=== PATIENT | male | born 1930 | race Caucasian/White ===

== ENCOUNTER 2018-02-05 03:59 | Inpatient (IN) | payer MEDICARE, OTHER ==
[~2018-02-05] VITALS: Ht 170.2 cm; Wt 96.6 kg
[~2018-02-05 03:59] MED LIST: ACET325T9 PO; ACET500T68 PO; ALLO100T PO; ALLO300T PO; AMLO5TAB4 PO; ASCO500T3 PO; Amoxicillin PO; Aspirin PO; CEPH-264 PO; CHOL200074 PO; CYAN10005 PO; DIPH25CA58 PO; ENOX40DI SQ; FAMO20TA5 PO; FERR325T14 PO; FOLI1TAB16 PO; FURO20TA3 PO; FURO40TA4 PO; GABA-586 PO; HALO5VIA2 IJ; HYDR-2758 PO; HYDR10SY16 PO; HYDR25TA9 PO; HYDR30CR6 RC; HYDR453.3 TP; IPRA3AMP NEB; LACT1CAP24 PO; LATA2.5D3 EACHEYE; LIDO5JEL8 TOP; LIDO700A4 TP; LISI-334 PO; LOPE1LIQ7 PO; LOPE2CAP3 PO; LORA0.5T PO; LORA10TA3 PO; MAG30ORA PO; MAGN2400 PO; MAGN400T3 PO; METH29OI TP; MULT1TAB52 PO; ONDA8TAB9 PO; PANT40TA3 PO; POTA10TA31 PO; POTA20TA12 PO; PRAV80TA2 PO; QUET25TA5 PO; RIVA20TA2 PO; SERT50TA8 PO; SIME80TA14 PO; SIMV20TA PO; SPIR25TA3 PO; TAMS0.4C2 PO; THIA100T4 PO; TIMO1DRO2 OU; TIMO5DRO5 EACHEYE; TRAZ50TA15 PO; TRIA15OI TP; WINE PO; [UNRECOGNIZED DRUG - OTHER] PO
[2018-02-05] MEDS ORDERED: LORazepam 2 MG/ML VIAL ONE (04:03)
[2018-02-05] MEDS: IV NORMAL SALINE 1,000ML 1,000 ML IV SCH ×2 (04:05→20:05)
[2018-02-05] MEDS ORDERED: LORazepam 2 MG/ML VIAL IV ONE ×2 (04:15→04:30)
--- NOTE | 2018-02-05 04:23 | EKG ---
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
[2018-02-05 04:24] LABS: BASO # 0.1 x10^3/uL (0.0-0.2); BASO % 1 % (0-3); EOS # 0.1 x10^3/uL (0.0-0.7); EOS % 1 % (0-3); HEMATOCRIT 29.8 % (39.0-53.0); HEMOGLOBIN 9.5 g/dL (13.0-17.5); LYMPH # 1.2 x10^3/uL (1.0-4.8); LYMPH % 8 % (24-48); MEAN CORPUSCULAR HEMOGLOBIN 30 pg (25-35); MEAN CORPUSCULAR HGB CONC 32 g/dL (31-37); MEAN CORPUSCULAR VOLUME 95 fL (79-100); MONO # 1.4 x10^3/uL (0.0-1.1); MONO % 10 % (0-9); NEUT # 11.5 x10^3uL (1.8-7.7); NEUT % 81 % (31-73); PLATELET COUNT 515 x10^3/uL (140-400); RED BLOOD COUNT 3.15 x10^6/uL (4.30-5.70); RED CELL DISTRIBUTION WIDTH 18.4 % (11.5-14.5); WHITE BLOOD COUNT 14.3 x10^3/uL (4.0-11.0)
[2018-02-05 04:36] LABS: ALBUMIN 3.4 g/dL (3.4-5.0); ALBUMIN/GLOBULIN RATIO 0.8 (1.0-1.7); CALCIUM 8.7 mg/dL (8.5-10.1); GFR 31.8; TOTAL BILIRUBIN 0.3 mg/dL (0.2-1.0); TOTAL PROTEIN 7.5 g/dL (6.4-8.2)
[2018-02-05 04:41] LABS: POTASSIUM 7.5 mmol/L (3.5-5.1)
[2018-02-05] MEDS ORDERED: IPRATRPIUM/ALBUTEROL 0.5/2.5MG 3 ML NEBU. NEB ONE (05:00)
[2018-02-05] MEDS ORDERED: BUMETANIDE 1 MG/4 ML VIAL. IVP ONE (05:00)
[2018-02-05] MEDS ORDERED: INSULIN REGULAR 100 UNIT/ML 10ML VIAL. IV ONE (05:00)
[2018-02-05] MEDS: CEFEPIME HCL 1 GM in IV NORMAL SALINE 50ML 50 ML IV SCH (05:00)
[2018-02-05] MEDS ORDERED: CALCIUM GLUCONATE 1,000 MG/10 ML VIAL IV ONE (05:00)
[2018-02-05] MEDS ORDERED: SODIUM BICARBONATE IVF 50 MEQ in IV DEXTROSE 5% 1,000 ML IV ONE (05:00)
[2018-02-05] MEDS ORDERED: DEXTROSE 50% 25 GM / 50ML DISP.SYRIN. IV ONE (05:00)
[2018-02-05] MEDS ORDERED: IV NORMAL SALINE 1,000ML 1,000 ML IV SCH (05:00)
[2018-02-05] MEDS ORDERED: VANCOMYCIN 2 GM in IV NORMAL SALINE 500ML 500 ML IV ONE ×2 (05:30→08:15)
[2018-02-05] MEDS ORDERED: SODIUM BICARB ADULT 8.4% 50 MEQ/50 ML DISP.SYRIN. ONE (05:40)
[2018-02-05 05:53] LABS: BILIRUBIN,URINE NEG (NEG); CLARITY,URINE CLEAR; COLOR,URINE STRAW; GLUCOSE,URINE NEG (NEG)
[2018-02-05 05:54] LABS: AMORPHOUS SEDIMENT,UR PRESENT /HPF; BACTERIA,URINE FEW /HPF (0-FEW); HYALINE CASTS, URINE OCC /HPF; NITRITE,URINE NEG (NEG); RBC,URINE OCC /HPF (0-2); SQUAMOUS EPITHELIAL CELL,UR OCC /LPF; UROBILINOGEN,URINE 0.2 mg/dL (0.2 mg/dL); WBC,URINE OCC /HPF (0-4)
[2018-02-05] MEDS ORDERED: ONDANSETRON PF 4 MG/2 ML VIAL. IV PRN (06:00)
--- NOTE | 2018-02-05 06:00 | PHYS DOC ---
Past History Past Medical History: A-Fib, Alcoholism, CHF, Dementia, Diverticulitis, High Cholesterol, Hypertension, Kidney Infection, UTI Past Surgical History: Pacemaker, Other Smoking: Non-smoker Alcohol Use: Heavy Drug Use: None Adult General Chief Complaint Chief Complaint: DYSPNEA/RESPIRATOY DISTRESS HPI HPI 87-year-old male senior care resident at an Alzheimer's memory care unit now sent for evaluation of shortness of breath for a week and patient has an extensive cardiac history including atrial fibrillation on eloquent is, congestive heart failure on Lasix, pacemaker in place, type 2 diabetes with insulin use, advanced dementia and a DNR status. Patient also take supplemental potassium 3 times a day. Apparently he is involved shortness of breath requiring supplemental oxygen for the last week. Per senior care staff it worsened tonight so they sent him for evaluation and treatment. Patient is at his baseline mental status per senior care staff via EMS. Review of Systems Review of Systems Review of systems per senior care staff via EMS Constitutional: Denies fever or chills [] Eyes: Denies change in visual acuity, redness, or eye pain [] HENT: Denies nasal congestion or sore throat [] Respiratory: Worsening shortness of breath over the last week as stated in the history of present illness Cardiovascular: No additional information not addressed in HPI [] GI: Denies abdominal pain, nausea, vomiting, bloody stools or diarrhea [] : Denies dysuria or hematuria [] Musculoskeletal: Denies back pain or joint pain [] Integument: Some skin bruising anterior abdomen Neurologic: Denies headache, focal weakness or sensory changes [] Endocrine: Denies polyuria or polydipsia [] All other systems were reviewed and found to be within normal limits, except as documented in this note. Current Medications Current Medications Current Medications Medications (Trade) Dose Ordered Sig/Michelle Start Time Stop Time Status Last Admin Dose Admin Albuterol/ Ipratropium (Duoneb) 3 ml 1X ONCE 02/05/18 05:00 02/05/18 05:01 DC Bumetanide (Bumex) 1 mg ONCE ONCE 02/05/18 05:00 02/05/18 05:01 DC Calcium Gluconate 1,000 mg 1X ONCE 02/05/18 05:00 02/05/18 05:01 DC Cefepime HCl 1 gm/ Sodium Chloride 50 ml @ 100 mls/hr Q24H 4/1/18 05:00 Dextrose 25 gm 1X ONCE 02/05/18 05:00 02/05/18 05:01 DC Insulin Human Regular (NovoLIN R) 10 unit 1X ONCE 02/05/18 05:00 02/05/18 05:01 DC Lorazepam (Ativan) 1 mg 1X ONCE 02/05/18 04:30 02/05/18 04:35 DC 02/05/18 04:30 1 MG Sodium Bicarbonate 50 meq/Dextrose 1,050 ml @ 125 mls/hr 1X ONCE 02/05/18 05:00 02/05/18 13:23 Sodium Chloride 1,000 ml @ 1,000 mls/hr Q1H 02/05/18 05:00 02/05/18 05:59 Vancomycin HCl (Vanco Per Pharmacy) 1 each PRN DAILY PRN 02/05/18 04:45 Vancomycin HCl 2 gm/Sodium Chloride 500 ml @ 250 mls/hr 1X ONCE 02/05/18 05:30 02/05/18 07:29 Allergies Allergies Allergies Coded Allergies Type Severity Reaction Last Updated Verified amoxicillin Allergy Intermediate 02/05/18 Yes aspirin Allergy Intermediate 02/05/18 Yes strawberry Allergy Intermediate 02/05/18 Yes Physical Exam Physical Exam Constitutional: Chronically weak appearing elderly male intermittently yelling which apparently is his mental status baseline per EMS, tachypnea initially in the 30s, hypoxia on room air in the 80s and 90s on supplemental oxygen, mild respiratory distress initially with mild increased work of breathing. Bilateral rails. 2+ pitting edema bilateral lower extremities. Benign abdomen and nonfocal neurologic exam with diffuse generalized weakness and chronic bedridden state HENT: Normocephalic, atraumatic, bilateral external ears normal, oropharynx moist, no oral exudates, nose normal. [] Eyes: PERRLA, EOMI, conjunctiva normal, no discharge. [] Neck: Normal range of motion, no tenderness, supple, no stridor. [] Cardiovascular: As above Lungs & Thorax: As above Abdomen: Bowel sounds normal, soft, no tenderness, no masses, no pulsatile masses. [] Skin: Warm, dry, no erythema, no rash. Several areas of ecchymosis anterior abdomen with subcutaneous induration consistent with Speck didn't subcutaneous injection history[] Back: No tenderness, no CVA tenderness. [] Extremities: No tenderness, no cyanosis, no clubbing, ROM intact, no edema. [] Neurologic: Alert baseline dementia patient is able to communicate and follow some commands, positive generalized weakness 4 minus out of 5 without asymmetry , normal sensory function, no focal deficits noted. [] Psychologic: Depressed mood and flat affect Current Patient Data Vital Signs Vital Signs Date Time Temp Pulse Resp B/P (MAP) Pulse Ox O2 Delivery O2 Flow Rate FiO2 02/05/18 04:40 98 BiPAP/CPAP 02/05/18 04:00 97.4 87 22 Lab Results Laboratory Tests Test 02/05/18 04:05 02/05/18 04:08 White Blood Count 14.3 x10^3/uL (4.0-11.0) H Red Blood Count 3.15 x10^6/uL (4.30-5.70) L Hemoglobin 9.5 g/dL (13.0-17.5) L Hematocrit 29.8 % (39.0-53.0) L Mean Corpuscular Volume 95 fL (79-100) Mean Corpuscular Hemoglobin 30 pg (25-35) Mean Corpuscular Hemoglobin Concent 32 g/dL (31-37) Red Cell Distribution Width 18.4 % (11.5-14.5) H Platelet Count 515 x10^3/uL (140-400) H Neutrophils (%) (Auto) 81 % (31-73) H Lymphocytes (%) (Auto) 8 % (24-48) L Monocytes (%) (Auto) 10 % (0-9) H Eosinophils (%) (Auto) 1 % (0-3) Basophils (%) (Auto) 1 % (0-3) Neutrophils # (Auto) 11.5 x10^3uL (1.8-7.7) H Lymphocytes # (Auto) 1.2 x10^3/uL (1.0-4.8) Monocytes # (Auto) 1.4 x10^3/uL (0.0-1.1) H Eosinophils # (Auto) 0.1 x10^3/uL (0.0-0.7) Basophils # (Auto) 0.1 x10^3/uL (0.0-0.2) Sodium Level 137 mmol/L (136-145) Potassium Level 7.5 mmol/L (3.5-5.1) *H Chloride Level 104 mmol/L (98-107) Carbon Dioxide Level 26 mmol/L (21-32) Anion Gap 7 (6-14) Blood Urea Nitrogen 44 mg/dL (8-26) H Creatinine 2.0 mg/dL (0.7-1.3) H Estimated GFR (Cockcroft-Gault) 31.8 BUN/Creatinine Ratio 22 (6-20) H Glucose Level 172 mg/dL (70-99) H Lactic Acid Level 2.0 mmol/L (0.4-2.0) Calcium Level 8.7 mg/dL (8.5-10.1) Total Bilirubin 0.3 mg/dL (0.2-1.0) Aspartate Amino Transferase (AST) 36 U/L (15-37) Alanine Aminotransferase (ALT) 47 U/L (16-63) Alkaline Phosphatase 112 U/L (46-116) Troponin I Quantitative 0.072 ng/mL (0-0.055) H UQ-Okt-D-Type Natriuretic Peptide 6566 pg/mL (0-449) H Total Protein 7.5 g/dL (6.4-8.2) Albumin 3.4 g/dL (3.4-5.0) Albumin/Globulin Ratio 0.8 (1.0-1.7) L Glucose (Fingerstick) 166 mg/dL (70-99) H EKG EKG EKG with atrial relation with ventricular rate of 74. Wide complex rhythm with left anterior hemiblock and right bundle branch block no STEMI. Nonspecific ST and T-wave findings interpreted by me[] Radiology/Procedures Radiology/Procedures Chest x-ray with severe cardiomegaly and congestive heart failure with pulmonary edema and radiographic inability to rule out infiltrate. Interpreted by me[] Impressions: Critical care 76 minutes Course & Med Decision Making Course & Med Decision Making Pertinent Labs and Imaging studies reviewed. (See chart for details) [] Dragon Disclaimer Dragon Disclaimer This electronic medical record was generated, in whole or in part, using a voice recognition dictation system. Departure Departure: Impression: Primary Impression: Acute on chronic diastolic congestive heart failure Additional Impressions: Hyperkalemia Hypoxia Tachypnea Leukocytosis Disposition: ADMITTED INPATIENT Admitting Physician: Malinda Estevez Condition: GUARDED Referrals: MALINDA ESTEVEZ MD (PCP) Problem Qualifiers ASHLIE GARY MD Feb 05, 2018 06:00
[2018-02-05] MEDS ORDERED: IV NORMAL SALINE 50ML 50 ML ONE (06:17)
[2018-02-05] MEDS ORDERED: CEFEPIME HCL 1 GM VIAL ONE (06:18)
[2018-02-05] MEDS ORDERED: SODIUM BICARB ADULT 8.4% 50 MEQ/50 ML DISP.SYRIN. IV ONE (06:30)
[2018-02-05] MEDS: VANCOMYCIN PER PHARMACY MC PRN (06:49)
--- NOTE | 2018-02-05 06:49 | NUR ---
Pharmacy Vancomycin Dosing Note S:Consulted to monitor and dose vancomycin started 02/05/18. O:JANICE DEMPSEY is a 87 year old M with Empiric . Height: 5 feet, 7 inches Weight: 93.567689 kg [place] Body Weight: 66.10 Adjusted Body Weight: 77.26 Dosing Weight: Actual Other Antibiotics: ZOSYN 4.5 GM Q8H LABS: Last BUN: 44 Last Creatinine: 2 Creatinine Clearance: 29 Last WBC: 14.3 Last Platelets: 515 Tmax (past 24 hours): Microbiology: I/O: Drug Levels: Last level: on at Last dose given at Vancomycin Dosing: Loading Dose: 2000 mg x1 Dosing Weight: Actual Target Trough: 10-20 A: Based on: WT AND CRCL P: 1. Begin Vancomycin 1500 mg IV q24h 2. Follow up Trough level on 02/07/18 at 0630 3. Pharmacy will continue to monitor, follow and adjust therapy as needed. ROB MONZON RPH, 02/05/18 0649 Signed: 02/05/18 at 0649 by ROB MONZON RPH PHA
--- NOTE | 2018-02-05 07:55 | NUR ---
Admit to room icu bed 4 via cart accompanied by staff and emt's. Drowsy but wakes with name briefly, vs stable on bipap , O2 sat 97-100%, no s/s of distress at this time. Saline lock to right ac patent. Oriented to room and explained all procedures, will need reinforcement.
[2018-02-05 07:56] VITALS: BP 150/81
--- NOTE | 2018-02-05 08:05 | RAD ---
AP portable chest radiograph 02/05/2018 Clinical History: Shortness of breath. Pacemaker. An AP portable erect digital radiograph of the chest was obtained. Comparison study is dated 10/08/2016. A left-sided pacemaker is unchanged position. The cardiac silhouette is mildly enlarged. Atherosclerotic calcification of the thoracic aorta is seen. The thoracic aorta is mildly tortuous. Prominence of the pulmonary vasculature and interstitial markings in both lungs is seen suggesting mild CHF. No area of consolidation is seen. No pneumothorax or pleural effusion is noted. Degenerative changes are seen involving the thoracic spine and both shoulders. Impression: Findings suggesting mild CHF.
[2018-02-05] MEDS: LACTOBACILLUS RHAMNOSUS GG 1 CAPSULE. PO SCH ×2 (08:58→20:49)
[2018-02-05 11:41] VITALS: BP 137/76
[2018-02-05 11:47] LABS: CREATININE 1.6 mg/dL (0.7-1.3); GFR 41.2
[2018-02-05 11:53] LABS: POTASSIUM 6.1 mmol/L (3.5-5.1)
[2018-02-05] MEDS ORDERED: IPRATRPIUM/ALBUTEROL 0.5/2.5MG 3 ML NEBU. NEB PRN (12:15)
[2018-02-05] MEDS ORDERED: LOPERAMIDE 2 MG CAPSULE PO PRN (12:15)
[2018-02-05] MEDS ORDERED: ACETAMINOPHEN 325 MG TABLET PO PRN (12:15)
[2018-02-05] MEDS ORDERED: MAGNESIUM HYDROXIDE 2,400 MG/30 ML ORAL.SUSP. PO PRN (12:30)
[2018-02-05] MEDS ORDERED: hydrOXYzine HCL 10 MG TABLET PO PRN (12:30)
[2018-02-05 12:38] LABS: BGAS PH 7.34 (7.35-7.46)
--- NOTE | 2018-02-05 12:42 | HP ---
ADMIT DATE: 02/05/2018 HISTORY OF PRESENT ILLNESS: The patient is an 87-year-old male patient, a resident at [facility], who apparently was brought to the Emergency Room with increasing shortness of breath. The patient was on Lasix, Zaroxolyn as well as potassium. He apparently was started requiring oxygen supplement and oxygen about a week ago; however, his shortness of breath has worsened and therefore he was transferred to Emergency Room at [facility] for further evaluation and treatment. He was extensively investigated and his chest x-ray showed that the cardiac silhouette is mildly enlarged. He has atherosclerotic calcification of the thoracic aorta is seen. The thoracic aorta is mildly tortuous. Prominence of the pulmonary vasculature and interstitial markings in both lungs were seen suggestive of mild congestive heart failure. There were no areas of consolidation seen. No pneumothorax or pleural effusions are noted. Degenerative changes are seen involving the thoracic spine and both shoulders. His white cell count was slightly elevated at 14,000 and his chemistry showed that he was hyperkalemic. His potassium was 7.5 mEq per liter. His BUN and creatinine slightly elevated from his baseline and his first set of troponin was slightly elevated also at 0.072. His beta natriuretic peptide was elevated also at 6566. The patient was admitted with an acute on chronic diastolic congestive heart failure, hyperkalemia, hypoxia and leukocytosis. PAST MEDICAL HISTORY: Significant for congestive heart failure due to left ventricular diastolic dysfunction, also hypertension, osteoarthritis, sciatica, chronic lower extremity edema, history of glaucoma, vitamin B12 deficiency and vitamin D deficiency. He has gouty arthritis, benign prostatic hypertrophy, sick sinus syndrome for which a permanent pacemaker. PAST SURGICAL HISTORY: Significant for permanent pacemaker placement. ALLERGIES: He has no known drug allergies. FAMILY HISTORY: Unremarkable. 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 He has a long history of alcoholism. He was admitted to double shots of [employer] a day, drinks heavier than that. He does not smoke and use recreational drugs. However, since he was admitted to [facility] he has not been drinking. REVIEW OF SYSTEMS: The patient is on BiPAP machine and I was unable to get any relevant information from him. MEDICATIONS: He is currently on following medications: He is on loratadine 10 mg once a day, ipratropium bromide albuterol sulfate 0.5-2.5 mg in 3 mL by nebulizer 4 times a day, tamsulosin 0.4 mg at bedtime, Tylenol 650 mg every 4 hours, sertraline 50 mg once a day, quetiapine fumarate 25 mg at bedtime. He is on quetiapine fumarate 12.5 mg every 4 hours as needed, hydroxyzine 20 mg every 8 hours as needed, timolol maleate 1 drop to both eyes with breakfast, magnesium oxide 400 mg twice a day, loperamide 2 mg every 4 hours as needed. He is on milk of magnesia 30 mL p.o. daily p.r.n. for constipation, famotidine 20 mg daily, cyanocobalamin for vitamin B12 1000 mcg p.o. daily and cholecalciferol 2000 international unit capsules 2000 units daily. PHYSICAL EXAMINATION: GENERAL: On arrival, the patient was extremely apparently was tachypneic, pale, but no jaundice, cyanosis or thyromegaly. No jugular venous distension. No limb edema. VITAL SIGNS: His heart rate was 87, his blood pressure was 130/67, temperature was 97.4, respiratory rate was 22 and oxygen saturation was 95% on BiPAP machine. HEAD, EYES, EARS, NOSE AND THROAT: Showed normocephalic, atraumatic. NECK: Supple. HEART: Showed normal first and second heart sounds. No gallop, rub or murmur. CHEST: Clear to auscultation. No crepitation or rhonchi. ABDOMEN: Distended, soft, nontender. No guarding or rigidity. No organomegaly. All hernial orifices intact. Bowel sounds normal. NEUROLOGIC: He is somewhat confused, but without any other lateralizing sign. All cranial nerves intact. EXTREMITIES: He moves extremities without difficulty. LABORATORY DATA: Showed a white cell count of 14,300, hemoglobin 9.5, hematocrit 29.8, MCV 95 and platelet count 515,000. His chemistry showed a serum sodium 137, potassium 7.5, chloride 104, bicarbonate 26, anion gap of 7, BUN 44, creatinine 0.2, estimated GFR was 32 mL per minute, his glucose 175, calcium was 8.7. Total bilirubin, AST, ALT, alkaline phosphatase were normal. His first troponin was 0.072 and beta natriuretic peptide was 6566. His total protein was 7.5, albumin was 3.4. TSH was slightly elevated at . IMPRESSION: In summary, this is an 87-year-old male patient, who was basically admitted with apfar-dn-fdblylt diastolic congestive heart failure. There also what seemed to be acute on chronic kidney injury. His creatinine about 2 years ago was only 1. He was also found to be hyperkalemic with serum potassium of 7.5, has mild leukocytosis and hypoxemia. His urinalysis was essentially unremarkable and was negative. ASSESSMENT AND PLAN: The patient was admitted and started on BiPAP, started on IV antibiotic for questionable pneumonia. We will monitor his lab work and his response to treatment and decide the further management accordingly. NEAL ESTEVEZ MD DR: ALFREDO/alejo JOB#: [id number] / [id number]
[2018-02-05] MEDS ORDERED: SODIUM POLYSTYRENE SULFONATE 15 GM/60 ML ORAL.SUSP. PO ONE (13:45)
[2018-02-05] MEDS ORDERED: LACTULOSE 20 GM/30 ML SOLUTION. PO ONE (13:45)
[2018-02-05] MEDS ORDERED: FURO40TA4 PO (13:46)
[2018-02-05] MEDS ORDERED: FINA5TAB4 PO (13:46)
[2018-02-05] MEDS ORDERED: MENT222L TP (13:48)
[2018-02-05] MEDS ORDERED: ATOR10TA PO (13:49)
[2018-02-05] MEDS ORDERED: BUSP10TA PO (13:52)
[2018-02-05] MEDS ORDERED: ALLO300T PO (13:53)
[2018-02-05] MEDS ORDERED: TRAM50TA PO (13:54)
[2018-02-05] MEDS ORDERED: INSU100I27 SQ (13:56)
[2018-02-05] MEDS ORDERED: INSU100C4 SQ (13:57)
[2018-02-05] MEDS ORDERED: SPIR25TA3 PO (13:58)
[2018-02-05] MEDS ORDERED: APIX5TAB3 PO (13:59)
[2018-02-05] MEDS ORDERED: DIPH25CA58 PO (14:00)
[2018-02-05] MEDS ORDERED: PRED-220 PO (14:00)
[2018-02-05] MEDS ORDERED: POTA20TA84 PO (14:02)
[2018-02-05] MEDS ORDERED: NITROGLYCERIN SUBLINGUAL 0.4 MG BOTTLE OF 25. SL ONE (14:13)
[2018-02-05] MEDS ORDERED: NITROGLYCERIN SUBLINGUAL 0.4 MG BOTTLE OF 25. SL PRN (14:15)
[2018-02-05] MEDS ORDERED: traMADol 50 MG TABLET PO PRN (14:30)
[2018-02-05] MEDS ORDERED: FLUV100T2 PO (14:34)
[2018-02-05] MEDS ORDERED: NIFE60TA PO (14:34)
[2018-02-05 15:09] VITALS: BP 136/81
[2018-02-05] MEDS: FUROSEMIDE 40 MG TABLET PO SCH (18:41)
[2018-02-05] MEDS: diphenhydrAMINE HCL 25 MG CAPSULE PO PRN (18:41)
[2018-02-05 19:17] VITALS: BP 123/61
[2018-02-05] MEDS: TAMSULOSIN 0.4 MG CAP.ER.24H. PO SCH (20:48)
[2018-02-05] MEDS: MENTHOL/CAMPHOR 0.5%/0.5% LOTION 222ML BOTTLE. TP SCH (20:48)
[2018-02-05] MEDS: APIXABAN 5 MG TABLET. PO SCH (20:48)
[2018-02-05] MEDS: LATANOPROST 0.005% OPHTH SOLUTION 2.5ML BOTTLE. OU SCH (20:48)
[2018-02-05] MEDS: busPIRone 10 MG TABLET. PO SCH (20:49)
[2018-02-05] MEDS: LORazepam 2 MG/ML VIAL IV PRN (20:49)
[2018-02-05] MEDS: ATORVASTATIN CALCIUM 10 MG TABLET. PO SCH (20:49)
[2018-02-05] MEDS: MAGNESIUM OXIDE 400 MG TABLET PO SCH (20:49)
[2018-02-05] MEDS: QUEtiapine 25 MG TABLET. PO SCH (20:49)
[2018-02-05] MEDS: INSULIN DETEMIR 300 UNITS/3 ML INSULN.PEN. SQ SCH (20:51)
[2018-02-05 22:18] VITALS: BP 125/54
[2018-02-06] VITALS (7 sets, daily range): BP systolic 110–153; BP diastolic 51–81
[2018-02-06] MEDS: IV NORMAL SALINE 1,000ML 1,000 ML IV SCH (04:05)
[2018-02-06] MEDS: CEFEPIME HCL 1 GM in IV NORMAL SALINE 50ML 50 ML IV SCH (04:53)
[2018-02-06 06:31] LABS: HEMATOCRIT 28.9 % (39.0-53.0); HEMOGLOBIN 9.4 g/dL (13.0-17.5); RED BLOOD COUNT 3.06 x10^6/uL (4.30-5.70); RED CELL DISTRIBUTION WIDTH 18.5 % (11.5-14.5); WHITE BLOOD COUNT 9.5 x10^3/uL (4.0-11.0)
[2018-02-06 06:45] LABS: ALBUMIN/GLOBULIN RATIO 0.7 (1.0-1.7); CALCIUM 8.7 mg/dL (8.5-10.1); CREATININE 1.4 mg/dL (0.7-1.3); GFR 48.1; TOTAL BILIRUBIN 0.4 mg/dL (0.2-1.0); TOTAL PROTEIN 7.3 g/dL (6.4-8.2)
[2018-02-06 06:48] LABS: POTASSIUM 2.8 mmol/L (3.5-5.1)
[2018-02-06] MEDS ORDERED: POTASSIUM CHLORIDE 20 MEQ TABLET.ER. PO ONE ×2 (07:15→14:00)
[2018-02-06] MEDS: POTASSIUM CHLORIDE 20 MEQ TABLET.ER. PO SCH ×2 (07:45→11:40)
[2018-02-06] MEDS: TIMOLOL 0.5% OPHTH SOLUTION 5ML BOTTLE. OU SCH (07:46)
[2018-02-06] MEDS: VANCOMYCIN 1.5 GM in IV NORMAL SALINE 500ML 500 ML IV SCH (07:46)
[2018-02-06] MEDS: LACTOBACILLUS RHAMNOSUS GG 1 CAPSULE. PO SCH ×2 (08:01→21:35)
[2018-02-06] MEDS: MAGNESIUM OXIDE 400 MG TABLET PO SCH ×2 (08:01→21:35)
[2018-02-06] MEDS: busPIRone 10 MG TABLET. PO SCH ×2 (08:02→21:35)
[2018-02-06] MEDS: SERTRALINE 50 MG TABLET. PO SCH (08:05)
[2018-02-06] MEDS: CYANOCOBALAMIN (VITAMIN B-12) 1,000 MCG TABLET. PO SCH (08:05)
[2018-02-06] MEDS: CHOLECALCIFEROL (VITAMIN D3) 1,000 UNIT TABLET PO SCH (08:05)
[2018-02-06] MEDS: FINASTERIDE 5 MG TABLET PO SCH (08:05)
[2018-02-06] MEDS: ALLOPURINOL 300 MG TABLET. PO SCH (08:05)
[2018-02-06] MEDS: predniSONE 10 MG TABLET PO SCH (08:05)
[2018-02-06] MEDS: APIXABAN 5 MG TABLET. PO SCH ×2 (08:06→21:35)
[2018-02-06] MEDS: FUROSEMIDE 40 MG TABLET PO SCH (08:06)
[2018-02-06] MEDS: MENTHOL/CAMPHOR 0.5%/0.5% LOTION 222ML BOTTLE. TP SCH ×2 (08:27→21:00)
--- NOTE | 2018-02-06 08:45 | NUR ---
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
[2018-02-06] MEDS ORDERED: CETIRIZINE HCL 10 MG TABLET PO SCH (09:00)
[2018-02-06] MEDS ORDERED: FAMOTIDINE 20 MG TABLET PO SCH (09:00)
--- NOTE | 2018-02-06 09:44 | PDOC2 ---
CARDIAC CONSULT DATE OF CONSULT Date Of Consult DATE: 02/06/18 TIME: 09:34 REASON FOR CONSULT Reason for Consult CHF HPI History of Present Illness This is an 87-year-old male, resident at [place] who was transported via EMS for shortness of breath. He has apparently been experiencing new shortness of breath requiring oxygen for the last week but worsened so was sent to the ED,. He has advanced dementia and is unable to give history so this is obtained from the chart. He was found to be in congestive heart failure, ARF and had a significantly elevated potassium. He is currently sitting up in bed and resting quietly but when wakened he complains of not being able to breath. 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, resident at [place], non smoker, no illicit drugs CURRENT MEDICATIONS Current Medications Current Medications Lorazepam (Ativan) 2 mg STK-MED ONCE .ROUTE ; Start 02/05/18 at 04:03; Stop at 04:04; Status DC Lorazepam (Ativan) 1 mg 1X ONCE IV Last administered on 02/05/18at 04:12; Start 02/05/18 at 04:15; Stop 02/05/18 at 04:24; Status DC Sodium Chloride 1,000 ml @ 125 mls/hr Q8H IV ; Start 02/05/18 at 04:05 Bumetanide (Bumex) 1 mg ONCE ONCE IVP Last administered on 02/05/18at 05:45; Start 02/05/18 at 05:00; Stop 02/05/18 at 05:01; Status DC Lorazepam (Ativan) 1 mg 1X ONCE IV Last administered on 02/05/18at 04:30; Start 02/05/18 at 04:30; Stop 02/05/18 at 04:35; Status DC Sodium Chloride 1,000 ml @ 1,000 mls/hr Q1H IV ; Start 02/05/18 at 05:00; Stop 02/05/18 at 05:59; Status DC Cefepime HCl 1 gm/ Sodium Chloride 50 ml @ 100 mls/hr Q24H IV Last administered on 02/06/18at 04:53; Start 02/05/18 at 05:00 Vancomycin HCl (Vanco Per Pharmacy) 1 each PRN DAILY PRN MC SEE COMMENTS Last administered on 02/05/18at 06:49; Start 02/05/18 at 04:45 Calcium Gluconate 1,000 mg 1X ONCE IV Last administered on 02/05/18at 05:48; Start 02/05/18 at 05:00; Stop 02/05/18 at 05:01; Status DC Albuterol/ Ipratropium (Duoneb) 3 ml 1X ONCE NEB Last administered on at 05:57; Start 02/05/18 at 05:00; Stop 02/05/18 at 05:01; Status DC Sodium Bicarbonate 50 meq/Dextrose 1,050 ml @ 125 mls/hr 1X ONCE IV ; Start at 05:00; Stop 02/05/18 at 13:23; Status DC Insulin Human Regular (NovoLIN R) 10 unit 1X ONCE IV Last administered on at 05:54; Start 02/05/18 at 05:00; Stop 02/05/18 at 05:01; Status DC Dextrose 25 gm 1X ONCE IV Last administered on 02/05/18at 05:50; Start 02/05/18 at 05:00; Stop 02/05/18 at 05:01; Status DC Vancomycin HCl 2 gm/Sodium Chloride 500 ml @ 250 mls/hr 1X ONCE IV ; Start 02/05/18 at 05:30; Stop 02/05/18 at 07:29; Status DC Sodium Bicarbonate (Sodium Bicarb Adult 8.4% Syr) 50 meq STK-MED ONCE .ROUTE ; Start 02/05/18 at 05:40; Stop 02/05/18 at 05:41; Status DC Ondansetron HCl (Zofran) 4 mg PRN Q4HRS PRN IV NAUSEA/VOMITING; Start 02/05/18 at 06:00; Stop 02/06/18 at 06:00; Status DC Lorazepam (Ativan) 1 mg PRN Q2HR PRN IV ANXIETY Last administered on 02/05/18at 20:49; Start 02/05/18 at 06:00 Sodium Bicarbonate (Sodium Bicarb Adult 8.4% Syr) 50 meq 1X ONCE IV Last administered on 02/05/18at 06:12; Start 02/05/18 at 06:30; Stop 02/05/18 at 06:31; Status DC Sodium Chloride 50 ml @ As Directed STK-MED ONCE .ROUTE ; Start 02/05/18 at 06:17 ; Stop 02/05/18 at 06:18; Status DC Cefepime HCl (Maxipime) 1 gm STK-MED ONCE .ROUTE ; Start 02/05/18 at 06:18; Stop 02/05/18 at 06:19; Status DC Vancomycin HCl 1.5 gm/Sodium Chloride 500 ml @ 250 mls/hr Q24H IV Last administered on 02/06/18at 07:46; Start 02/06/18 at 08:00 Vancomycin HCl (Vancomycin Trough Level) 1 each 1X ONCE MC ; Start 02/07/18 at 07:30; Stop 02/07/18 at 07:31 Lactobacillus Rhamnosus (Culturelle) 1 cap BID PO Last administered on at 08:01; Start 02/05/18 at 09:00 Vancomycin HCl 2 gm/Sodium Chloride 500 ml @ 250 mls/hr 1X ONCE IV Last administered on 02/05/18at 08:23; Start 02/05/18 at 08:15; Stop 02/05/18 at 10:14; Status DC Acetaminophen (Tylenol) 650 mg PRN Q6HRS PRN PO PAIN; Start 02/05/18 at 12:15 Cyanocobalamin (Vitamin B-12) 1,000 mcg DAILY PO Last administered on 02/06/18at 08:05; Start 02/06/18 at 09:00 Famotidine (Pepcid) 20 mg DAILY PO ; Start 02/06/18 at 09:00; Stop 02/06/18 at 09: 00; Status DC Hydroxyzine HCl (Atarax) 20 mg PRN Q8HRS PRN PO ITCHING; Start 02/05/18 at 12:30 ; Stop 02/05/18 at 16:34; Status DC Albuterol/ Ipratropium (Duoneb) 3 ml PRN Q4HRS PRN NEB SHORTNESS OF BREATH; Start 02/05/18 at 12:15 Latanoprost (Xalatan) 1 drop QHS OU Last administered on 02/05/18at 20:48; Start 02/05/18 at 21:00 Loperamide HCl (Imodium) 2 mg PRN Q4HRS PRN PO DIARRHEA; Start 02/05/18 at 12:15 ; Stop 02/05/18 at 16:34; Status DC Magnesium Oxide (Magnesium Oxide) 400 mg BID PO Last administered on 02/06/18at 08:01; Start 02/05/18 at 21:00 Quetiapine Fumarate (SEROquel) 25 mg HS PO Last administered on 02/05/18at 20:49 ; Start 02/05/18 at 21:00 Sertraline HCl (Zoloft) 50 mg DAILY PO Last administered on 02/06/18at 08:05; Start 02/06/18 at 09:00 Tamsulosin HCl (Flomax) 0.4 mg HS PO Last administered on 02/05/18at 20:48; Start 02/05/18 at 21:00 Vitamin D (Vitamin D3) 2,000 unit DAILY PO Last administered on 02/06/18at 08:05 ; Start 02/06/18 at 09:00 Hydrocortisone (Proctosol-Hc) 1 genaro PRN BID PRN RC INFLAMMATION; Start 02/05/18 at 12:30 Cetirizine HCl (ZyrTEC) 10 mg DAILY PO ; Start 02/06/18 at 09:00; Stop 02/06/18 at 09:00; Status DC Magnesium Hydroxide (Milk Of Magnesia) 2,400 mg PRN QHS PRN PO CONSTIPATION; Start 02/05/18 at 12:30 Timolol Maleate (Timoptic 0.5% Oph) 1 drop DAILYWBKFT OU Last administered on 02/06/18at 07:46; Start 02/06/18 at 08:00 Sodium Polystyrene Sulfonate (Kayexalate) 30 gm 1X ONCE PO Last administered on 02/05/18at 14:29; Start 02/05/18 at 13:45; Stop 02/05/18 at 13:46; Status DC Lactulose (Lactulose) 20 gm 1X ONCE PO Last administered on 02/05/18at 14:28; Start 02/05/18 at 13:45; Stop 02/05/18 at 13:46; Status DC Nitroglycerin (Nitrostat) 0.4 mg STK-MED ONCE SL ; Start 02/05/18 at 14:13; Stop 02/05/18 at 14:14; Status DC Nitroglycerin (Nitrostat) 0.4 mg PRN Q5MIN PRN SL CHEST PAIN Last administered on 02/05/18at 14:27; Start 02/05/18 at 14:15 Allopurinol (Zyloprim) 300 mg DAILY PO Last administered on 02/06/18 08:05; Start 02/06/18 at 09:00 Apixaban (Eliquis) 5 mg BID PO Last administered on 02/06/18 08:06; Start at 21:00 Atorvastatin Calcium (Lipitor) 10 mg QHS PO Last administered on 02/05/18at 20:49 ; Start 02/05/18 at 21:00 Buspirone HCl (Buspar) 10 mg BID PO Last administered on 02/06/18at 08:02; Start 02/05/18 at 21:00 Diphenhydramine HCl (Benadryl) 25 mg PRN Q4HRS PRN PO ITCHING Last administered on 02/05/18at 18:41; Start 02/05/18 at 14:30 Finasteride (Proscar) 5 mg DAILY PO Last administered on 02/06/18 08:05; Start 02/06/18 at 09:00 Furosemide (Lasix) 40 mg BID94 PO Last administered on 02/06/18at 08:06; Start at 16:00 Insulin Detemir (Levemir) 6 units HS SQ Last administered on 02/05/18at 20:51; Start 02/05/18 at 21:00 Camphor/Menthol/ Phenol (Sarna) 1 genaro BID TP Last administered on 02/05/18 20: 48; Start 02/05/18 at 21:00 Prednisone (Prednisone) 10 mg DAILY PO Last administered on 02/06/18 08:05; Start 02/06/18 at 09:00 Tramadol HCl (Ultram) 50 mg PRN Q4HRS PRN PO PAIN Last administered on at 18:41; Start 02/05/18 at 14:30 Fluvoxamine Maleate (Luvox) 100 mg QHS PO Last administered on 4/1/18at 21:42; Start 02/05/18 at 21:00 Nifedipine (Procardia Xl) 60 mg DAILY PO Last administered on 02/06/18at 08:02; Start 02/06/18 at 09:00 Potassium Chloride (Klor-Con) 40 meq 1X ONCE PO ; Start 02/06/18 at 07:15; Stop 02/06/18 at 07:21; Status DC Potassium Chloride (Klor-Con) 40 meq Q2H PO Last administered on 02/06/18at 07:45 ; Start 02/06/18 at 07:15; Stop 02/06/18 at 09:16; Status DC Active Scripts Active Reported Fluvoxamine Maleate 100 Mg Tablet 1 Tab PO QHS Procardia Xl (Nifedipine) 60 Mg Tab.er.24 1 Tab PO DAILY K-Tab ER (Potassium Chloride) 20 Meq Tablet.er 40 Meq PO DAILY Prednisone 10 Mg Tablet 10 Mg PO DAILY Benadryl (Diphenhydramine Hcl) 25 Mg Capsule 1 Cap PO PRN Q4HRS PRN Eliquis (Apixaban) 5 Mg Tablet 5 Mg PO BID Spironolactone 25 Mg Tablet 1 Tab PO DAILY Novolog (Insulin Aspart) 100 Unit/1 Ml Cartridge 6 Unit SQ TIDAC Levemir Flextouch (Insulin Detemir) 100 Unit/1 Ml Insuln.pen 6 Unit SQ HS Tramadol Hcl (Tramadol HCl) 50 Mg Tablet 50 Mg PO Q4HRS PRN Allopurinol 300 Mg Tablet 1 Tab PO DAILY Buspirone Hcl 10 Mg Tablet 1 Tab PO BID Lipitor (Atorvastatin Calcium) 10 Mg Tablet 1 Tab PO QHS Alcides Anti-Itch Lotion (Menthol/Camphor) 222 Ml Lotion 222 Ml TP BID Furosemide 40 Mg Tablet 40 Mg PO BID Finasteride 5 Mg Tablet 1 Tab PO DAILY Duoneb 0.5-3(2.5) Mg/3 Ml (Albuterol/Ipratropium) 3 Ml Ampul.neb 3 Ml NEB Q4HRS PRN Analpram Hc 2.5% Cream (Hydrocortisone/Pramoxine) 30 Gm Cream.appl 1 Genaro RC BID PRN Milk Of Magnesia (Magnesium Hydroxide) 2,400 Mg/10 Ml Oral.susp 2,400 Mg PO PRN QHS PRN Timoptic 0.5% Ocudose Drop (Timolol Maleate/Pf) 1 Each Droperette 1 Drop OU DAILYWBKFT Seroquel (Quetiapine Fumarate) 25 Mg Tablet 25 Mg PO HS Tylenol (Acetaminophen) 325 Mg Tablet 650 Mg PO Q6HRS PRN Magnesium Oxide 400 Mg Tablet 400 Mg PO BID Latanoprost 2.5 Ml Drops 1 Drop EACHEYE QHS Vitamin B-12 (Cyanocobalamin (Vitamin B-12)) 1,000 Mcg Tablet 1,000 Mcg PO DAILY Vitamin D-3 (Cholecalciferol (Vitamin D3)) 2,000 Unit Capsule 2,000 Unit PO DAILY Tamsulosin Hcl 0.4 Mg Cap.er.24h 0.4 Mg PO HS ALLERGIES Allergies: Coded Allergies: amoxicillin (Verified Allergy, Intermediate, 02/05/18) aspirin (Verified Allergy, Intermediate, 02/05/18) strawberry (Verified Allergy, Intermediate, 02/05/18) I S O L A T I O N *CONTACT* (Verified Allergy, Unknown, 02/06/18) +MRSA 10/08/2016 ROS Review of Systems unobtainable PHYSICAL EXAM HEENT: Atraumatic Lungs: Other (basilar crackles) Heart: Other (irregular rate and rhythm, no gallops, clicks or rubs) Abdomen: Normal bowel sounds, Soft Extremities: Other (+ bilateral edema) Psych/Mental Status: Other (confused) VITALS Vital Signs Vital Signs Date Time Temp Pulse Resp B/P (MAP) Pulse Ox O2 Delivery O2 Flow Rate FiO2 02/06/18 08:38 Nasal Cannula 3.0 02/06/18 08:02 76 153/70 02/06/18 06:34 21 92 02/06/18 02:57 98.9 LABS LABS Laboratory Tests Test 02/05/18 04:05 02/05/18 04:08 02/05/18 05:15 02/05/18 08:18 White Blood Count 14.3 x10^3/uL (4.0-11.0) Red Blood Count 3.15 x10^6/uL (4.30-5.70) Hemoglobin 9.5 g/dL (13.0-17.5) Hematocrit 29.8 % (39.0-53.0) Mean Corpuscular Volume 95 fL (79-100) Mean Corpuscular Hemoglobin 30 pg (25-35) Mean Corpuscular Hemoglobin Concent 32 g/dL (31-37) Red Cell Distribution Width 18.4 % (11.5-14.5) Platelet Count 515 x10^3/uL (140-400) Neutrophils (%) (Auto) 81 % (31-73) Lymphocytes (%) (Auto) 8 % (24-48) Monocytes (%) (Auto) 10 % (0-9) Eosinophils (%) (Auto) 1 % (0-3) Basophils (%) (Auto) 1 % (0-3) Neutrophils # (Auto) 11.5 x10^3uL (1.8-7.7) Lymphocytes # (Auto) 1.2 x10^3/uL (1.0-4.8) Monocytes # (Auto) 1.4 x10^3/uL (0.0-1.1) Eosinophils # (Auto) 0.1 x10^3/uL (0.0-0.7) Basophils # (Auto) 0.1 x10^3/uL (0.0-0.2) Sodium Level 137 mmol/L (136-145) Potassium Level 7.5 mmol/L (3.5-5.1) Chloride Level 104 mmol/L (98-107) Carbon Dioxide Level 26 mmol/L (21-32) Anion Gap 7 (6-14) Blood Urea Nitrogen 44 mg/dL (8-26) Creatinine 2.0 mg/dL (0.7-1.3) Estimated GFR (Cockcroft-Gault) 31.8 BUN/Creatinine Ratio 22 (6-20) Glucose Level 172 mg/dL (70-99) Lactic Acid Level 2.0 mmol/L (0.4-2.0) 1.0 mmol/L (0.4-2.0) Calcium Level 8.7 mg/dL (8.5-10.1) Total Bilirubin 0.3 mg/dL (0.2-1.0) Aspartate Amino Transf (AST/SGOT) 36 U/L (15-37) Alanine Aminotransferase (ALT/SGPT) 47 U/L (16-63) Alkaline Phosphatase 112 U/L (46-116) Troponin I Quantitative 0.072 ng/mL (0-0.055) 0.070 ng/mL (0-0.055) ZA-Yhz-M-Type Natriuretic Peptide 6566 pg/mL (0-449) Total Protein 7.5 g/dL (6.4-8.2) Albumin 3.4 g/dL (3.4-5.0) Albumin/Globulin Ratio 0.8 (1.0-1.7) Thyroid Stimulating Hormone (TSH) 6.579 uIU/mL (0.358-3.740) Glucose (Fingerstick) 166 mg/dL (70-99) Urine Collection Type U cath Urine Color Straw Urine Clarity Clear Urine pH 5.0 Urine Specific [place] 1.010 Urine Protein Neg (NEG-TRACE) Urine Glucose (UA) Neg mg/dL (NEG) Urine Ketones (Stick) Neg mg/dL (NEG) Urine Blood Neg (NEG) Urine Nitrite Neg (NEG) Urine Bilirubin Neg (NEG) Urine Urobilinogen Dipstick 0.2 mg/dL (0.2 mg/dL) Urine Leukocyte Esterase Neg (NEG) Urine RBC Occ /HPF (0-2) Urine WBC Occ /HPF (0-4) Urine Squamous Epithelial Cells Occ /LPF Urine Amorphous Sediment Present /HPF Urine Bacteria Few /HPF (0-FEW) Urine Hyaline Casts Occ /HPF Urine Mucus Slight /LPF Test 02/05/18 11:25 02/05/18 12:10 02/05/18 20:26 02/06/18 05:49 Sodium Level 139 mmol/L (136-145) 146 mmol/L (136-145) Potassium Level 6.1 mmol/L (3.5-5.1) 2.8 mmol/L (3.5-5.1) Chloride Level 106 mmol/L (98-107) 106 mmol/L (98-107) Carbon Dioxide Level 25 mmol/L (21-32) 32 mmol/L (21-32) Anion Gap 8 (6-14) 8 (6-14) Blood Urea Nitrogen 43 mg/dL (8-26) 31 mg/dL (8-26) Creatinine 1.6 mg/dL (0.7-1.3) 1.4 mg/dL (0.7-1.3) Estimated GFR (Cockcroft-Gault) 41.2 48.1 Glucose Level 65 mg/dL (70-99) 66 mg/dL (70-99) Calcium Level 9.0 mg/dL (8.5-10.1) 8.7 mg/dL (8.5-10.1) Troponin I Quantitative 0.066 ng/mL (0-0.055) Blood Gas pH 7.34 (7.35-7.46) Blood Gas PCO2 51 mmHg (35-46) Blood Gas PO2 96 mmHg (71-100) Blood Gas HCO3 28 mmol/L (21-28) Arterial Bld O2 Saturation (Calc) 97 % (92-99) FiO2 45 % Glucose (Fingerstick) 70 mg/dL (70-99) White Blood Count 9.5 x10^3/uL (4.0-11.0) Red Blood Count 3.06 x10^6/uL (4.30-5.70) Hemoglobin 9.4 g/dL (13.0-17.5) Hematocrit 28.9 % (39.0-53.0) Mean Corpuscular Volume 95 fL (79-100) Mean Corpuscular Hemoglobin 31 pg (25-35) Mean Corpuscular Hemoglobin Concent 33 g/dL (31-37) Red Cell Distribution Width 18.5 % (11.5-14.5) Platelet Count 430 x10^3/uL (140-400) Prothrombin Time 12.4 SEC (9.4-11.4) Prothromb Time International Ratio 1.2 (0.9-1.1) BUN/Creatinine Ratio 22 (6-20) Total Bilirubin 0.4 mg/dL (0.2-1.0) Aspartate Amino Transf (AST/SGOT) 32 U/L (15-37) Alanine Aminotransferase (ALT/SGPT) 43 U/L (16-63) Alkaline Phosphatase 89 U/L (46-116) Total Protein 7.3 g/dL (6.4-8.2) Albumin 3.0 g/dL (3.4-5.0) Albumin/Globulin Ratio 0.7 (1.0-1.7) Test 02/06/18 06:03 02/06/18 06:45 Glucose (Fingerstick) 54 mg/dL (70-99) 90 mg/dL (70-99) IMAGES IMAGES CXR - Impression: Findings suggesting mild CHF. EKG EKG atrial fibrillation, IWMI age undetermined, RBBB, no acute st/t changes ASSESSMENT/PLAN Assessment/Plan 1. acute on chronic probable diastolic heart failure - Continue diuresis, check echo for LV function. 2. mild troponin elevation - likely demand related. In light of patient mental status and functionality, suggest conservative mgmt. No asa due to allergy. 3. atrial fibrillation, perm - on Eliquis 4. PPM - st Tung - check device 5. hyperkalemia/hypokalemia - Aldactone and potassium replacement on arrival discontinued. Kayexalate and now low K+. Replace per PCP 6. hypertension - fair control on resumed home medications 7. hyperlipidemia - check lipids, statin DIMITRY KHANNA [employer] DISMANT[employer]ER Feb 06, 2018 09:44
--- NOTE | 2018-02-06 11:08 | RAD ---
CHEST AP ONLY History: CHF, COUGH. Comparison: February 05, 2018 image available but no report Findings: Cardiomediastinal silhouette is enlarged. There is ill-definition and prominence of central vascularity compatible with congestion. This is similar to the previous study. Mild hazy density over both lungs without dense lobar consolidation. No evidence of pneumothorax. Pacemaker is redemonstrated. Degenerative changes of both shoulders, with evidence of right rotator cuff tear IMPRESSION: Findings suggest congestive failure or fluid overload with pulmonary edema. No new lobar consolidation. Electronically signed by: Huber Carrera MD (02/06/2018 11:05 AM) [id number]
--- NOTE | 2018-02-06 12:00 | NUR ---
Dr. Douglas here today, plan is to repeat chest xray and change PO lasix to IVP. Redraw labs to make sure potassium is within normal limits and dose per protocol. Pt continues to have difficulty breathing upon exertion, wheezing noted. Remains on 3-4L NC with sats at 96%, will try to titrate. Pt is restless throughout day but easily redirectable.
[2018-02-06 12:55] LABS: CALCIUM 8.5 mg/dL (8.5-10.1); CREATININE 1.4 mg/dL (0.7-1.3); GFR 48.1
[2018-02-06 12:58] LABS: POTASSIUM 4.2 mmol/L (3.5-5.1)
[2018-02-06] MEDS: FUROSEMIDE 40 MG/4 ML VIAL IVP SCH (13:15)
[2018-02-06] MEDS: LATANOPROST 0.005% OPHTH SOLUTION 2.5ML BOTTLE. OU SCH (21:00)
[2018-02-06] MEDS: INSULIN DETEMIR 300 UNITS/3 ML INSULN.PEN. SQ SCH (21:00)
[2018-02-06] MEDS: TAMSULOSIN 0.4 MG CAP.ER.24H. PO SCH (21:35)
[2018-02-06] MEDS: ATORVASTATIN CALCIUM 10 MG TABLET. PO SCH (21:35)
[2018-02-06] MEDS: QUEtiapine 25 MG TABLET. PO SCH (21:36)
[2018-02-07] MEDS: LORazepam 2 MG/ML VIAL IV PRN ×2 (01:57→04:17)
[2018-02-07] MEDS: diphenhydrAMINE HCL 25 MG CAPSULE PO PRN (01:57)
[2018-02-07 04:00] VITALS: BP 119/54
[2018-02-07] MEDS: CEFEPIME HCL 1 GM in IV NORMAL SALINE 50ML 50 ML IV SCH (04:57)
[2018-02-07 07:58] VITALS: BP 154/67
[2018-02-07 08:15] LABS: BASO # 0.1 x10^3/uL (0.0-0.2); BASO % 1 % (0-3); EOS # 0.4 x10^3/uL (0.0-0.7); EOS % 4 % (0-3); HEMATOCRIT 27.1 % (39.0-53.0); HEMOGLOBIN 8.6 g/dL (13.0-17.5); LYMPH # 0.9 x10^3/uL (1.0-4.8); LYMPH % 9 % (24-48); MEAN CORPUSCULAR HEMOGLOBIN 30 pg (25-35); MEAN CORPUSCULAR HGB CONC 32 g/dL (31-37); MEAN CORPUSCULAR VOLUME 95 fL (79-100); MONO # 1.2 x10^3/uL (0.0-1.1); MONO % 12 % (0-9); NEUT # 7.3 x10^3uL (1.8-7.7); NEUT % 74 % (31-73); PLATELET COUNT 424 x10^3/uL (140-400); RED BLOOD COUNT 2.87 x10^6/uL (4.30-5.70); RED CELL DISTRIBUTION WIDTH 18.4 % (11.5-14.5); WHITE BLOOD COUNT 9.8 x10^3/uL (4.0-11.0)
[2018-02-07] MEDS ORDERED: LORazepam 2 MG/ML VIAL IV PRN (08:15)
[2018-02-07 08:16] LABS: ALBUMIN 2.8 g/dL (3.4-5.0); ALBUMIN/GLOBULIN RATIO 0.7 (1.0-1.7); CALCIUM 8.9 mg/dL (8.5-10.1); CREATININE 1.3 mg/dL (0.7-1.3); GFR 52.3; TOTAL BILIRUBIN 0.4 mg/dL (0.2-1.0); TOTAL PROTEIN 7.1 g/dL (6.4-8.2)
[2018-02-07 08:18] LABS: VANC TR 18.8 mcg/mL (10.0-20.0)
[2018-02-07] MEDS: FUROSEMIDE 40 MG/4 ML VIAL IVP SCH (08:31)
[2018-02-07] MEDS: TIMOLOL 0.5% OPHTH SOLUTION 5ML BOTTLE. OU SCH (08:32)
[2018-02-07] MEDS: VANCOMYCIN 1.5 GM in IV NORMAL SALINE 500ML 500 ML IV SCH (08:32)
[2018-02-07] MEDS: CHOLECALCIFEROL (VITAMIN D3) 1,000 UNIT TABLET PO SCH (09:00)
[2018-02-07] MEDS: MENTHOL/CAMPHOR 0.5%/0.5% LOTION 222ML BOTTLE. TP SCH ×2 (09:00→20:29)
[2018-02-07] MEDS: ALLOPURINOL 300 MG TABLET. PO SCH (09:00)
[2018-02-07] MEDS: SERTRALINE 50 MG TABLET. PO SCH (09:00)
[2018-02-07] MEDS: predniSONE 10 MG TABLET PO SCH (09:00)
[2018-02-07] MEDS: busPIRone 10 MG TABLET. PO SCH ×2 (09:00→20:22)
[2018-02-07] MEDS: CYANOCOBALAMIN (VITAMIN B-12) 1,000 MCG TABLET. PO SCH (09:00)
[2018-02-07] MEDS: APIXABAN 5 MG TABLET. PO SCH ×2 (09:00→20:22)
[2018-02-07] MEDS: MAGNESIUM OXIDE 400 MG TABLET PO SCH ×2 (09:00→20:23)
[2018-02-07] MEDS: LACTOBACILLUS RHAMNOSUS GG 1 CAPSULE. PO SCH ×2 (09:00→20:22)
[2018-02-07] MEDS: FINASTERIDE 5 MG TABLET PO SCH (09:00)
[2018-02-07] MEDS: VANCOMYCIN PER PHARMACY MC PRN (09:06)
--- NOTE | 2018-02-07 09:06 | NUR ---
Pharmacy Vancomycin Dosing Note S:Consulted to monitor and dose vancomycin started 02/05/18. O:JANICE DEMPSEY is a 87 year old M with Questionable pneumonia Empir[facility] . Height: 5 feet, 7 inches Weight: 97.248496 kg [place] Body Weight: 66.10 Adjusted Body Weight: 77.26 Dosing Weight: Actual Other Antibiotics: ZOSYN LABS: Last BUN: 25 Last Creatinine: 1.3 Creatinine Clearance: 37.2 Last WBC: 9.8 Last Platelets: 424 Drug Levels: Last Trough level: 18.8 on 02/07/18 at 0630 Vancomycin Dosing: Loading Dose: 2000 mg x1 Dosing Weight: Actual Target Trough: 15-20 A: Based on the trough, continue current dosing. P: 1. Continue Vancomycin 1500 mg IV q24h 2. Follow up Trough level on 02/10/18 at 0630 3. Pharmacy will continue to monitor, follow and adjust therapy as needed. ROMERO MARTELL [facility] 02/07/18 [id number]
--- NOTE | 2018-02-07 09:15 | NUR ---
Pt very sleepy this morning, resting with eyes closed but able to arouse and ask for water. Pt max assist and continue to reposition patient to prevent breakdown. Pt Lung sounds diminished, continues on 3L NC with sats at 94%. Pt denies pain or discomfort so far this shift. Will continue to monitor patient throughout shift.
--- NOTE | 2018-02-07 09:34 | CARD ---
MR#: [id number] Date of Study: 02/06/2018 Ordering Physician: DIMITRY KHANNA, Referring Physician: NEAL ESTEVEZ Tech: LEDY Ochoa APPROVED REPORT EXAM: Two-dimensional and M-mode echocardiogram with Doppler and color Doppler. Other Information Quality : AverageHR: 75bpm Technically limited study due to body habitus. INDICATION Congestive Heart Failure 2D DIMENSIONS RVDd4.1 (2.9-3.5cm)Left Atrium(2D)4.4 (1.6-4.0cm) IVSd1.6 (0.7-1.1cm)Aortic Root(2D)2.8 (2.0-3.7cm) LVDd4.7 (3.9-5.9cm)LVOT Diameter2.2 (1.8-2.4cm) PWd1.4 (0.7-1.1cm)LVDs2.7 (2.5-4.0cm) FS (%) 42.2 %SV76.5 ml LVEF(%)73.2 (>50%) Aortic Valve AoV Peak Tristan.404.1cm/sAoV EOW773.3cm AO Peak GR.65.3mmHgLVOT Peak Tristan.71.3cm/s LVOT VTI 15.86cmAO Mean GR.39mmHg ANABELL (VMAX)0.91it7WWC (VTI)0.44cm2 Mitral Valve MV E Fgtlneml170.6cm/sMV DECEL [id number] MV A Hquadjzn65.3cm/sE/A Ratio3.3 Pulmonary Valve PV Peak Ubdidoqx099.1cm/sPV Peak Grad.8mmHg Tricuspid Valve TR P. Frqpaojm810fr/sRAP [id number] TR Peak Gr.01siVhAUIU58whEx LEFT VENTRICLE The left ventricle is normal size. There is mild to moderate concentric left ventricular hypertrophy. The left ventricular systolic function is normal. The ejection fraction is estimated at 60-65%. Ther e is normal LV segmental wall motion. Transmitral Doppler flow pattern is Grade IV-fixed restrictive diastolic dysfunction. RIGHT VENTRICLE The right ventricle is normal size. The right ventricle is mildly to moderately hypertrophied. The ri ght ventricular systolic function is normal. There is a pacemaker lead in the right ventricle. ATRIA The left atrium is mildly dilated. A pacemaker is seen in the right atrium consistent with history. T he interatrial septum is intact with no evidence for an atrial septal defect or patent foramen ovale as noted on 2-D or Doppler imaging. AORTIC VALVE The aortic valve is severely calcified. Doppler and Color Flow revealed no significant aortic regurgi tation. There is moderate to severe valvular aortic stenosis. There is no aortic valvular vegetation. MITRAL VALVE The mitral valve is calcified but opens well. There is no evidence of mitral valve prolapse. There is no mitral valve stenosis. Doppler and Color Flow revealed no mitral valve regurgitation noted. TRICUSPID VALVE The tricuspid valve leaflets are thickened or calcified, but open well. Doppler and Color Flow reveal ed moderate tricuspid regurgitation. There is moderate-severe pulmonary hypertension. The PA pressure was estimated at 72 mmHg. There is no tricuspid valve prolapse or vegetation. There is no tricuspid valve stenosis. PULMONIC VALVE The pulmonic valve is not well visualized. Doppler and Color Flow revealed mild pulmonic valvular reg urgitation. There is no pulmonic valvular stenosis. GREAT VESSELS The aortic root is normal size. The aortic root displays moderate sclerocalcific changes of the aorti c annulus.root. The IVC is dilated. The IVC collapses <50% with inspiration. PERICARDIAL EFFUSION There is no pleural effusion. There is no evidence of significant pericardial effusion. Critical Notification Critical Value: No <Conclusion> The left ventricular systolic function is normal. The ejection fraction is estimated at 60-65%. There is normal LV segmental wall motion. A pacemaker is seen in the right atrium consistent with history. There is moderate to severe valvular aortic stenosis with mean gradient 39 mm Hg.. Doppler and Color Flow revealed moderate tricuspid regurgitation. There is moderate-severe pulmonary hypertension. The PA pressure was estimated at 72 mmHg. There is no evidence of significant pericardial effusion. Signed by : Arcenio Edmond, Electronically Approved : 02/07/2018 09:34:03
--- NOTE | 2018-02-07 09:42 | PN ---
DATE: 02/06/2018 SUBJECTIVE: The patient is resting, slightly propped up in bed, in no apparent distress. He continued to have recurrent bouts of cough with thick sputum. He is now on 4 liters of oxygen, maintaining adequate saturation was 92%. PHYSICAL EXAMINATION: GENERAL: When I examined him, he was somewhat pale, but no jaundice, cyanosis, or thyromegaly. No jugular venous distension. No lower limb edema. VITAL SIGNS: His heart rate was 76, blood pressure 153/70, temperature was 98.9, respiratory rate was 21 and oxygen saturation was 92% on 3 liters oxygen by nasal cannula. HEAD, EYES, EARS, NOSE AND THROAT: Shows normocephalic, atraumatic. NECK: Supple. HEART: Showed normal first and second heart sounds with no gallop, rub or murmur. CHEST: Clear to auscultation. No crepitation or rhonchi. ABDOMEN: Distended, soft, nontender. No guarding or rigidity. No organomegaly. Hernial orifice intact. Bowel sounds normal. NEUROLOGIC: He was awake, alert, although continued to be somewhat agitated and restless. All his cranial nerves are intact. He moves extremities without difficulty, although he is mostly bedbound, chair bound. LABORATORY DATA: His intake over the last 24 hours was 820, output was 2700. His lab work as of this morning showed a white cell count is down to 9500, hemoglobin 9.4, hematocrit 28.9, MCV 95 and platelet count of 450,000. His chemistry showed that his serum sodium is 146, potassium 2.8, chloride 106, bicarbonate 32, anion gap of 8, BUN 31, creatinine 1.4, estimated GFR was 48 mL per minute. His glucose was 66, calcium was 8.7. Total bilirubin, AST, ALT, alkaline phosphatase were normal. Total protein 7.3, albumin was 3. So far, his blood cultures showed no growth after one day. ASSESSMENT AND PLAN: 1. Acute on chronic diastolic congestive heart failure. 2. Acute on chronic kidney injury, marked hyperkalemia, serum potassium of 7.5. 3. Acute hypoxic hypercapnic respiratory failure. 4. Other medical problems include hypertension, atrial fibrillation, benign prostatic hypertrophy, sick sinus syndrome, status post permanent pacemaker. The plan is to continue with diuresing him, await the result of an echocardiogram to evaluate left ventricular systolic function. 5. Atrial fibrillation, rate controlled, on Eliquis. 6. Hyperkalemia. His potassium and Aldactone was discontinued. We treated him with Kayexalate and his potassium now is low, so we are replenishing his potassium. 7. Hypertension, well controlled. 8. Hyperlipidemia, on atorvastatin. 9. He has also benign prostatic hypertrophy for which he is on finasteride and Flomax. 10. The patient is also known to have gout for which he is on allopurinol. 11. The patient also has severe skin rash for which he has been on prolonged steroid courses and he is now Cushingoid and he continues to be on prednisone 10 mg once a day. 12. We will continue also on IV antibiotic in the form of vancomycin and cefepime as he has leukocytosis and questionable healthcare-associated pneumonia. NEAL ESTEVEZ MD DR: ALFREDO/alejo JOB#: [id number] / [id number]
--- NOTE | 2018-02-07 10:36 | PDOC ---
PROGRESS NOTES Diagnosis Problem Problems Medical Problems: (1) Acute on chronic diastolic congestive heart failure Status: Acute (2) CHF (congestive heart failure) Status: Acute (3) Hyperkalemia Status: Acute (4) Hypoxia Status: Acute (5) Leukocytosis Status: Acute (6) Tachypnea Status: Acute Assessment Problems Medical Problems: (1) Acute on chronic diastolic congestive heart failure Status: Acute (2) CHF (congestive heart failure) Status: Acute (3) Hyperkalemia Status: Acute (4) Hypoxia Status: Acute (5) Leukocytosis Status: Acute (6) Tachypnea Status: Acute 1. acute on chronic diastolic heart failure - continue diuresis. 2. mild troponin elevation - likely demand related due to uncontrolled HTN and aortic stenosis. In light of patient mental status and functionality, suggest continue conservative mgmt. No asa due to allergy. 3. atrial fibrillation, perm - on Eliquis 4. PPM - st Tung - check device normal without HVRs. 5. PHTN 6. mod 7. Hypertension - consider addition of ACEI with close watch on K+ 8. hyperkalemia on aldactone /hypokalemia after kayexalate - now normalized. 9. hyperlipidemia - statin 10. sleep apnea - wittnessed. OP sleep study Problems: Subjective sleeping after sedatives last pm Objective Oxygen 2 liters NC maintaining SaO2. Vital Signs Date Time Temp Pulse Resp B/P (MAP) Pulse Ox O2 Delivery O2 Flow Rate FiO2 02/07/18 08:30 Nasal Cannula 3.0 02/07/18 07:58 68 22 154/67 (96) 94 02/07/18 04:00 97.8 Intake and Output 02/07/18 07:00 Intake Total 820 ml Output Total 2100 ml Balance -1280 ml Intake Oral 270 ml IV Total 550 ml Output Urine Total 2100 ml Abdomen: Normal bowel sounds, Soft Heart: Other (irregular rhythm, no gallops) Extremities: Other (edema improved) General: No acute distress, Other (sleeping after sedatives last pm) HEENT: Atraumatic Lungs: Other (clear anteriorly) Review of Relevant I have reviewed the following items rob (where applicable) has been applied. Labs Laboratory Tests Test 02/05/18 11:25 02/05/18 12:10 02/05/18 18:00 02/05/18 20:26 Sodium Level 139 mmol/L (136-145) Potassium Level 6.1 mmol/L (3.5-5.1) Chloride Level 106 mmol/L (98-107) Carbon Dioxide Level 25 mmol/L (21-32) Anion Gap 8 (6-14) Blood Urea Nitrogen 43 mg/dL (8-26) Creatinine 1.6 mg/dL (0.7-1.3) Estimated GFR (Cockcroft-Gault) 41.2 Glucose Level 65 mg/dL (70-99) Calcium Level 9.0 mg/dL (8.5-10.1) Troponin I Quantitative 0.066 ng/mL (0-0.055) Blood Gas pH 7.34 (7.35-7.46) Blood Gas PCO2 51 mmHg (35-46) Blood Gas PO2 96 mmHg (71-100) Blood Gas HCO3 28 mmol/L (21-28) Arterial Bld O2 Saturation (Calc) 97 % (92-99) FiO2 45 % Nasal Screen MRSA (PCR) Positive (Negative) Glucose (Fingerstick) 70 mg/dL (70-99) Test 02/06/18 05:49 02/06/18 06:03 02/06/18 06:45 02/06/18 11:19 White Blood Count 9.5 x10^3/uL (4.0-11.0) Red Blood Count 3.06 x10^6/uL (4.30-5.70) Hemoglobin 9.4 g/dL (13.0-17.5) Hematocrit 28.9 % (39.0-53.0) Mean Corpuscular Volume 95 fL (79-100) Mean Corpuscular Hemoglobin 31 pg (25-35) Mean Corpuscular Hemoglobin Concent 33 g/dL (31-37) Red Cell Distribution Width 18.5 % (11.5-14.5) Platelet Count 430 x10^3/uL (140-400) Prothrombin Time 12.4 SEC (9.4-11.4) Prothromb Time International Ratio 1.2 (0.9-1.1) Sodium Level 146 mmol/L (136-145) Potassium Level 2.8 mmol/L (3.5-5.1) Chloride Level 106 mmol/L (98-107) Carbon Dioxide Level 32 mmol/L (21-32) Anion Gap 8 (6-14) Blood Urea Nitrogen 31 mg/dL (8-26) Creatinine 1.4 mg/dL (0.7-1.3) Estimated GFR (Cockcroft-Gault) 48.1 BUN/Creatinine Ratio 22 (6-20) Glucose Level 66 mg/dL (70-99) Calcium Level 8.7 mg/dL (8.5-10.1) Total Bilirubin 0.4 mg/dL (0.2-1.0) Aspartate Amino Transf (AST/SGOT) 32 U/L (15-37) Alanine Aminotransferase (ALT/SGPT) 43 U/L (16-63) Alkaline Phosphatase 89 U/L (46-116) Total Protein 7.3 g/dL (6.4-8.2) Albumin 3.0 g/dL (3.4-5.0) Albumin/Globulin Ratio 0.7 (1.0-1.7) Glucose (Fingerstick) 54 mg/dL (70-99) 90 mg/dL (70-99) 173 mg/dL (70-99) Test 02/06/18 12:30 02/06/18 17:10 02/06/18 20:14 02/07/18 07:49 Sodium Level 144 mmol/L (136-145) 147 mmol/L (136-145) Potassium Level 4.2 mmol/L (3.5-5.1) 4.0 mmol/L (3.5-5.1) Chloride Level 107 mmol/L (98-107) 107 mmol/L (98-107) Carbon Dioxide Level 32 mmol/L (21-32) 34 mmol/L (21-32) Anion Gap 5 (6-14) 6 (6-14) Blood Urea Nitrogen 30 mg/dL (8-26) 25 mg/dL (8-26) Creatinine 1.4 mg/dL (0.7-1.3) 1.3 mg/dL (0.7-1.3) Estimated GFR (Cockcroft-Gault) 48.1 52.3 Glucose Level 217 mg/dL (70-99) 148 mg/dL (70-99) Calcium Level 8.5 mg/dL (8.5-10.1) 8.9 mg/dL (8.5-10.1) Glucose (Fingerstick) 155 mg/dL (70-99) 182 mg/dL (70-99) White Blood Count 9.8 x10^3/uL (4.0-11.0) Red Blood Count 2.87 x10^6/uL (4.30-5.70) Hemoglobin 8.6 g/dL (13.0-17.5) Hematocrit 27.1 % (39.0-53.0) Mean Corpuscular Volume 95 fL (79-100) Mean Corpuscular Hemoglobin 30 pg (25-35) Mean Corpuscular Hemoglobin Concent 32 g/dL (31-37) Red Cell Distribution Width 18.4 % (11.5-14.5) Platelet Count 424 x10^3/uL (140-400) Neutrophils (%) (Auto) 74 % (31-73) Lymphocytes (%) (Auto) 9 % (24-48) Monocytes (%) (Auto) 12 % (0-9) Eosinophils (%) (Auto) 4 % (0-3) Basophils (%) (Auto) 1 % (0-3) Neutrophils # (Auto) 7.3 x10^3uL (1.8-7.7) Lymphocytes # (Auto) 0.9 x10^3/uL (1.0-4.8) Monocytes # (Auto) 1.2 x10^3/uL (0.0-1.1) Eosinophils # (Auto) 0.4 x10^3/uL (0.0-0.7) Basophils # (Auto) 0.1 x10^3/uL (0.0-0.2) BUN/Creatinine Ratio 19 (6-20) Total Bilirubin 0.4 mg/dL (0.2-1.0) Aspartate Amino Transf (AST/SGOT) 23 U/L (15-37) Alanine Aminotransferase (ALT/SGPT) 35 U/L (16-63) Alkaline Phosphatase 80 U/L (46-116) Total Protein 7.1 g/dL (6.4-8.2) Albumin 2.8 g/dL (3.4-5.0) Albumin/Globulin Ratio 0.7 (1.0-1.7) Vancomycin Level Trough 18.8 mcg/mL (10.0-20.0) Vancomycin Last Dose Date 02/06/2018 Vancomycin Last Dose Time 0800 Microbiology 02/05/18 Blood Culture - Preliminary, Resulted NO GROWTH AFTER 2 DAYS Medications Current Medications Lorazepam (Ativan) 2 mg STK-MED ONCE .ROUTE ; Start 02/05/18 at 04:03; Stop at 04:04; Status DC Lorazepam (Ativan) 1 mg 1X ONCE IV Last administered on 02/05/18at 04:12; Start 02/05/18 at 04:15; Stop 02/05/18 at 04:24; Status DC Sodium Chloride 1,000 ml @ 125 mls/hr Q8H IV ; Start 02/05/18 at 04:05; Stop 02/06/18 at 10:39; Status DC Bumetanide (Bumex) 1 mg ONCE ONCE IVP Last administered on 02/05/18at 05:45; Start 02/05/18 at 05:00; Stop 02/05/18 at 05:01; Status DC Lorazepam (Ativan) 1 mg 1X ONCE IV Last administered on 02/05/18at 04:30; Start 02/05/18 at 04:30; Stop 02/05/18 at 04:35; Status DC Sodium Chloride 1,000 ml @ 1,000 mls/hr Q1H IV ; Start 02/05/18 at 05:00; Stop 02/05/18 at 05:59; Status DC Cefepime HCl 1 gm/ Sodium Chloride 50 ml @ 100 mls/hr Q24H IV Last administered on 02/07/18at 04:57; Start 02/05/18 at 05:00 Vancomycin HCl (Vanco Per Pharmacy) 1 each PRN DAILY PRN MC SEE COMMENTS Last administered on 02/07/18at 09:06; Start 02/05/18 at 04:45 Calcium Gluconate 1,000 mg 1X ONCE IV Last administered on 02/05/18at 05:48; Start 02/05/18 at 05:00; Stop 02/05/18 at 05:01; Status DC Albuterol/ Ipratropium (Duoneb) 3 ml 1X ONCE NEB Last administered on at 05:57; Start 02/05/18 at 05:00; Stop 02/05/18 at 05:01; Status DC Sodium Bicarbonate 50 meq/Dextrose 1,050 ml @ 125 mls/hr 1X ONCE IV ; Start at 05:00; Stop 02/05/18 at 13:23; Status DC Insulin Human Regular (NovoLIN R) 10 unit 1X ONCE IV Last administered on at 05:54; Start 02/05/18 at 05:00; Stop 02/05/18 at 05:01; Status DC Dextrose 25 gm 1X ONCE IV Last administered on 02/05/18at 05:50; Start 02/05/18 at 05:00; Stop 02/05/18 at 05:01; Status DC Vancomycin HCl 2 gm/Sodium Chloride 500 ml @ 250 mls/hr 1X ONCE IV ; Start 02/05/18 at 05:30; Stop 02/05/18 at 07:29; Status DC Sodium Bicarbonate (Sodium Bicarb Adult 8.4% Syr) 50 meq STK-MED ONCE .ROUTE ; Start 02/05/18 at 05:40; Stop 02/05/18 at 05:41; Status DC Ondansetron HCl (Zofran) 4 mg PRN Q4HRS PRN IV NAUSEA/VOMITING; Start 02/05/18 at 06:00; Stop 02/06/18 at 06:00; Status DC Lorazepam (Ativan) 1 mg PRN Q2HR PRN IV ANXIETY Last administered on 02/07/18at 04:17; Start 02/05/18 at 06:00; Stop 02/07/18 at 08:06; Status DC Sodium Bicarbonate (Sodium Bicarb Adult 8.4% Syr) 50 meq 1X ONCE IV Last administered on 02/05/18at 06:12; Start 02/05/18 at 06:30; Stop 02/05/18 at 06:31; Status DC Sodium Chloride 50 ml @ As Directed STK-MED ONCE .ROUTE ; Start 02/05/18 at 06:17 ; Stop 02/05/18 at 06:18; Status DC Cefepime HCl (Maxipime) 1 gm STK-MED ONCE .ROUTE ; Start 02/05/18 at 06:18; Stop 02/05/18 at 06:19; Status DC Vancomycin HCl 1.5 gm/Sodium Chloride 500 ml @ 250 mls/hr Q24H IV Last administered on 02/07/18at 08:32; Start 02/06/18 at 08:00 Vancomycin HCl (Vancomycin Trough Level) 1 each 1X ONCE MC Last administered on 02/07/18at 07:30; Start 02/07/18 at 07:30; Stop 02/07/18 at 07:32; Status DC Lactobacillus Rhamnosus (Culturelle) 1 cap BID PO Last administered on at 21:35; Start 02/05/18 at 09:00 Vancomycin HCl 2 gm/Sodium Chloride 500 ml @ 250 mls/hr 1X ONCE IV Last administered on 02/05/18at 08:23; Start 02/05/18 at 08:15; Stop 02/05/18 at 10:14; Status DC Acetaminophen (Tylenol) 650 mg PRN Q6HRS PRN PO PAIN; Start 02/05/18 at 12:15 Cyanocobalamin (Vitamin B-12) 1,000 mcg DAILY PO Last administered on 02/06/18at 08:05; Start 02/06/18 at 09:00 Famotidine (Pepcid) 20 mg DAILY PO ; Start 02/06/18 at 09:00; Stop 02/06/18 at 09: 00; Status DC Hydroxyzine HCl (Atarax) 20 mg PRN Q8HRS PRN PO ITCHING; Start 02/05/18 at 12:30 ; Stop 02/05/18 at 16:34; Status DC Albuterol/ Ipratropium (Duoneb) 3 ml PRN Q4HRS PRN NEB SHORTNESS OF BREATH; Start 02/05/18 at 12:15 Latanoprost (Xalatan) 1 drop QHS OU Last administered on 02/05/18at 20:48; Start 02/05/18 at 21:00 Loperamide HCl (Imodium) 2 mg PRN Q4HRS PRN PO DIARRHEA; Start 02/05/18 at 12:15 ; Stop 02/05/18 at 16:34; Status DC Magnesium Oxide (Magnesium Oxide) 400 mg BID PO Last administered on 02/06/18at 21:35; Start 02/05/18 at 21:00 Quetiapine Fumarate (SEROquel) 25 mg HS PO Last administered on 02/06/18at 21:36 ; Start 02/05/18 at 21:00 Sertraline HCl (Zoloft) 50 mg DAILY PO Last administered on 02/06/18at 08:05; Start 02/06/18 at 09:00 Tamsulosin HCl (Flomax) 0.4 mg HS PO Last administered on 02/06/18at 21:35; Start 02/05/18 at 21:00 Vitamin D (Vitamin D3) 2,000 unit DAILY PO Last administered on 02/06/18at 08:05 ; Start 02/06/18 at 09:00 Hydrocortisone (Proctosol-Hc) 1 genaro PRN BID PRN RC INFLAMMATION; Start 02/05/18 at 12:30 Cetirizine HCl (ZyrTEC) 10 mg DAILY PO ; Start 02/06/18 at 09:00; Stop 02/06/18 at 09:00; Status DC Magnesium Hydroxide (Milk Of Magnesia) 2,400 mg PRN QHS PRN PO CONSTIPATION; Start 02/05/18 at 12:30 Timolol Maleate (Timoptic 0.5% [facility]) 1 drop DAILYWBKFT OU Last administered on 02/07/18at 08:32; Start 02/06/18 at 08:00 Sodium Polystyrene Sulfonate (Kayexalate) 30 gm 1X ONCE PO Last administered on 02/05/18at 14:29; Start 02/05/18 at 13:45; Stop 02/05/18 at 13:46; Status DC Lactulose (Lactulose) 20 gm 1X ONCE PO Last administered on 02/05/18at 14:28; Start 02/05/18 at 13:45; Stop 02/05/18 at 13:46; Status DC Nitroglycerin (Nitrostat) 0.4 mg STK-MED ONCE SL ; Start 02/05/18 at 14:13; Stop 02/05/18 at 14:14; Status DC Nitroglycerin (Nitrostat) 0.4 mg PRN Q5MIN PRN SL CHEST PAIN Last administered on 02/05/18at 14:27; Start 02/05/18 at 14:15 Allopurinol (Zyloprim) 300 mg DAILY PO Last administered on 02/06/18at 08:05; Start 02/06/18 at 09:00 Apixaban (Eliquis) 5 mg BID PO Last administered on 02/06/18at 21:35; Start at 21:00 Atorvastatin Calcium (Lipitor) 10 mg QHS PO Last administered on 02/06/18at 21:35 ; Start 02/05/18 at 21:00 Buspirone HCl (Buspar) 10 mg BID PO Last administered on 02/06/18 21:35; Start 02/05/18 at 21:00 Diphenhydramine HCl (Benadryl) 25 mg PRN Q4HRS PRN PO ITCHING Last administered on 02/07/18 01:57; Start 02/05/18 at 14:30 Finasteride (Proscar) 5 mg DAILY PO Last administered on 02/06/18 08:05; Start 02/06/18 at 09:00 Furosemide (Lasix) 40 mg BID94 PO Last administered on 02/06/18 08:06; Start at 16:00; Stop 02/06/18 at 11:18; Status DC Insulin Detemir (Levemir) 6 units HS SQ Last administered on 02/05/18 20:51; Start 02/05/18 at 21:00 Camphor/Menthol/ Phenol (Sarna) 1 genaro BID TP Last administered on 02/05/18 20: 48; Start 02/05/18 at 21:00 Prednisone (Prednisone) 10 mg DAILY PO Last administered on 02/06/18 08:05; Start 02/06/18 at 09:00 Tramadol HCl (Ultram) 50 mg PRN Q4HRS PRN PO PAIN Last administered on at 18:41; Start 02/05/18 at 14:30 Fluvoxamine Maleate (Luvox) 100 mg QHS PO Last administered on 02/06/18 21:35; Start 02/05/18 at 21:00 Nifedipine (Procardia Xl) 60 mg DAILY PO Last administered on 02/06/18 08:02; Start 02/06/18 at 09:00 Potassium Chloride (Klor-Con) 40 meq 1X ONCE PO ; Start 02/06/18 at 07:15; Stop 02/06/18 at 07:21; Status DC Potassium Chloride (Klor-Con) 40 meq Q2H PO Last administered on 02/06/18at 11:40 ; Start 02/06/18 at 07:15; Stop 02/06/18 at 09:16; Status DC Furosemide (Lasix) 40 mg DAILY IVP Last administered on 4/3/18at 08:31; Start 02/06/18 at 12:00 Potassium Chloride (Klor-Con) 40 meq 1X ONCE PO Last administered on 02/06/18at 14:23; Start 02/06/18 at 14:00; Stop 02/06/18 at 14:01; Status DC Lorazepam (Ativan) 1 mg PRN Q4HRS PRN IV ANXIETY; Start 02/07/18 at 08:15 Vancomycin HCl (Vancomycin Trough Level) 1 each 1X ONCE MC ; Start 02/10/18 at 07:30; Stop 02/10/18 at 07:31 Active Scripts Active Reported Fluvoxamine Maleate 100 Mg Tablet 1 Tab PO QHS Procardia Xl (Nifedipine) 60 Mg Tab.er.24 1 Tab PO DAILY K-Tab ER (Potassium Chloride) 20 Meq Tablet.er 40 Meq PO DAILY Prednisone 10 Mg Tablet 10 Mg PO DAILY Benadryl (Diphenhydramine Hcl) 25 Mg Capsule 1 Cap PO PRN Q4HRS PRN Eliquis (Apixaban) 5 Mg Tablet 5 Mg PO BID Spironolactone 25 Mg Tablet 1 Tab PO DAILY Novolog (Insulin Aspart) 100 Unit/1 Ml Cartridge 6 Unit SQ TIDAC Levemir Flextouch (Insulin Detemir) 100 Unit/1 Ml Insuln.pen 6 Unit SQ HS Tramadol Hcl (Tramadol HCl) 50 Mg Tablet 50 Mg PO Q4HRS PRN Allopurinol 300 Mg Tablet 1 Tab PO DAILY Buspirone Hcl 10 Mg Tablet 1 Tab PO BID Lipitor (Atorvastatin Calcium) 10 Mg Tablet 1 Tab PO QHS Sarna Anti-Itch Lotion (Menthol/Camphor) 222 Ml Lotion 222 Ml TP BID Furosemide 40 Mg Tablet 40 Mg PO BID Finasteride 5 Mg Tablet 1 Tab PO DAILY Duoneb 0.5-3(2.5) Mg/3 Ml (Albuterol/Ipratropium) 3 Ml Ampul.neb 3 Ml NEB Q4HRS PRN Analpram Hc 2.5% Cream (Hydrocortisone/Pramoxine) 30 Gm Cream.appl 1 Genaro RC BID PRN Milk Of Magnesia (Magnesium Hydroxide) 2,400 Mg/10 Ml Oral.susp 2,400 Mg PO PRN QHS PRN Timoptic 0.5% Ocudose Drop (Timolol Maleate/Pf) 1 Each Droperette 1 Drop OU DAILYWBKFT Seroquel (Quetiapine Fumarate) 25 Mg Tablet 25 Mg PO HS Tylenol (Acetaminophen) 325 Mg Tablet 650 Mg PO Q6HRS PRN Magnesium Oxide 400 Mg Tablet 400 Mg PO BID Latanoprost 2.5 Ml Drops 1 Drop EACHEYE QHS Vitamin B-12 (Cyanocobalamin (Vitamin B-12)) 1,000 Mcg Tablet 1,000 Mcg PO DAILY Vitamin D-3 (Cholecalciferol (Vitamin D3)) 2,000 Unit Capsule 2,000 Unit PO DAILY Tamsulosin Hcl 0.4 Mg Cap.er.24h 0.4 Mg PO HS Vitals/I & O Vital Sign - Last 24 Hours 02/06/18 02/06/18 02/06/18 02/06/18 11:26 15:25 18:37 20:00 Temp 97.5 97.5 97.6 Pulse 71 64 75 78 Resp 28 21 24 22 B/P (MAP) 136/69 (91) 151/76 (101) 150/81 (104) 143/60 (87) Pulse Ox 94 96 96 95 O2 Delivery Nasal Cannula Nasal Cannula Nasal Cannula Nasal Cannula O2 Flow Rate 3.5 4.0 3.5 3.5 02/06/18 02/06/18 02/07/18 02/07/18 20:00 23:38 04:00 07:58 Temp 97.8 Pulse 64 78 68 Resp 24 20 22 B/P (MAP) 110/51 (70) 119/54 (75) 154/67 (96) Pulse Ox 96 97 94 O2 Delivery Nasal Cannula Nasal Cannula Nasal Cannula Nasal Cannula O2 Flow Rate 3.5 3.5 3.5 3.0 02/07/18 08:30 O2 Delivery Nasal Cannula O2 Flow Rate 3.0 Intake and Output 02/06/18 02/06/18 02/07/18 15:00 23:00 07:00 Intake Total 650 ml 120 ml 50 ml Output Total 500 ml 1000 ml 600 ml Balance 150 ml -880 ml -550 ml DIMITRY KHANNA CARETAKER Feb 07, 2018 10:36
[2018-02-07 11:38] VITALS: BP 127/65
[2018-02-07] MEDS: HYDROCORTISONE 2.5% RECTAL CREAM 30GM TUBE. RC PRN (12:12)
[2018-02-07] MEDS: HYDROCORTISONE SOD SUCC/PF 100 MG/2 ML VIAL. IV SCH ×2 (13:17→21:02)
[2018-02-07 16:18] VITALS: BP 141/81
--- NOTE | 2018-02-07 19:55 | PN ---
DATE: SUBJECTIVE: The patient is resting slightly propped up in bed, very lethargic, has given large amount of Benadryl and Ativan. Continue to complain of itching, asking to scratch his back. He continued to be slightly tachypneic, although he is maintaining his oxygen saturation at 98% on 2 liters of oxygen by nasal cannula. PHYSICAL EXAMINATION: GENERAL: When I examined him, he looked pale, but no jaundice, cyanosis, or thyromegaly. No jugular distension. No lower limb edema. VITAL SIGNS: Her heart rate was 71, blood pressure was 127/65, temperature was 97.8, respiratory rate 21, oxygen saturation was 94% on 2 liters of oxygen. HEAD, EYES, EARS, NOSE AND THROAT: Showed normocephalic, atraumatic. NECK: Supple. HEART: Showed normal first and second heart sounds. No gallop, rub or murmur. CHEST: Shows central trachea, equal bilateral expansion, air entry ____ few scattered rhonchi. I could not appreciate any crepitation. ABDOMEN: Distended, soft, nontender. No guarding or rigidity. No organomegaly. All hernial orifices intact. Bowel sounds normal. NEUROLOGIC: He was very lethargic, but arousable. All his cranial nerves are intact. He moves upper extremities to much good extent than his lower extremities, mostly bedbound and chair bound. His intake over the last 24 hours was 820, output was 2100. LABORATORY DATA: As of this morning, his serum sodium was 147, potassium 4, chloride 107, bicarbonate 34, anion gap of 6, BUN 25, creatinine was 1.3, estimated GFR was 52 mL per minute, his glucose 148, calcium was 8.9. Total bilirubin, AST, ALT, alkaline phosphatase were normal. Total protein was 7.1, albumin was 2.8. White cell count is down to 9800, hemoglobin 8.6, hematocrit 27, MCV 95 and platelet count of 424,000. His nasal screen for MRSA by PCR was positive. ASSESSMENT: 1. Acute on chronic diastolic congestive heart failure. 2. Atrial fibrillation, rate controlled, well anticoagulated on apixaban, permanent pacemaker was checked yesterday without any problems. 3. Pulmonary hypertension. 4. Moderate aortic stenosis. 5. Hypertension. 6. Hyperkalemia. 7. Hypokalemia, resolved. His potassium this morning was 4. 8. Obstructive sleep apnea for which he probably needs sleep study. PLAN: My plan is to discontinue the IV vancomycin, start him on IV hydrocortisone 100 mg, hold all his Ativan and Benadryl for now. Consult physical and occupational therapy. NEAL ESTEVEZ MD DR: ALFREDO/alejo JOB#: [id number] / [id number]
[2018-02-07] MEDS: TAMSULOSIN 0.4 MG CAP.ER.24H. PO SCH (20:22)
[2018-02-07] MEDS: ATORVASTATIN CALCIUM 10 MG TABLET. PO SCH (20:22)
[2018-02-07] MEDS: QUEtiapine 25 MG TABLET. PO SCH (20:23)
[2018-02-07 20:26] VITALS: BP 112/51
[2018-02-07] MEDS: LATANOPROST 0.005% OPHTH SOLUTION 2.5ML BOTTLE. OU SCH (20:29)
[2018-02-07] MEDS: INSULIN DETEMIR 300 UNITS/3 ML INSULN.PEN. SQ SCH (21:20)
[2018-02-07 23:29] VITALS: BP 107/51
[2018-02-08] MEDS: HYDROCORTISONE SOD SUCC/PF 100 MG/2 ML VIAL. IV SCH ×2 (05:53→15:07)
[2018-02-08] MEDS: CEFEPIME HCL 1 GM in IV NORMAL SALINE 50ML 50 ML IV SCH (05:53)
[2018-02-08 06:04] VITALS: BP 150/72
[2018-02-08 06:48] LABS: HEMATOCRIT 28.4 % (39.0-53.0); HEMOGLOBIN 9.2 g/dL (13.0-17.5); RED BLOOD COUNT 3.01 x10^6/uL (4.30-5.70); RED CELL DISTRIBUTION WIDTH 18.5 % (11.5-14.5); WHITE BLOOD COUNT 7.1 x10^3/uL (4.0-11.0)
[2018-02-08 06:49] LABS: ALBUMIN 2.8 g/dL (3.4-5.0); ALBUMIN/GLOBULIN RATIO 0.6 (1.0-1.7); CREATININE 1.2 mg/dL (0.7-1.3); GFR 57.4; POTASSIUM 4.1 mmol/L (3.5-5.1); TOTAL BILIRUBIN 0.3 mg/dL (0.2-1.0); TOTAL PROTEIN 7.2 g/dL (6.4-8.2)
[2018-02-08] MEDS: CHOLECALCIFEROL (VITAMIN D3) 1,000 UNIT TABLET PO SCH (08:21)
[2018-02-08] MEDS: busPIRone 10 MG TABLET. PO SCH ×2 (08:21→20:18)
[2018-02-08] MEDS: FINASTERIDE 5 MG TABLET PO SCH (08:21)
[2018-02-08] MEDS: CYANOCOBALAMIN (VITAMIN B-12) 1,000 MCG TABLET. PO SCH (08:22)
[2018-02-08] MEDS: predniSONE 10 MG TABLET PO SCH (08:22)
[2018-02-08] MEDS: SERTRALINE 50 MG TABLET. PO SCH (08:22)
[2018-02-08] MEDS: APIXABAN 5 MG TABLET. PO SCH ×2 (08:23→20:19)
[2018-02-08] MEDS: ALLOPURINOL 300 MG TABLET. PO SCH (08:23)
[2018-02-08] MEDS: MAGNESIUM OXIDE 400 MG TABLET PO SCH ×2 (08:23→20:18)
[2018-02-08] MEDS: LACTOBACILLUS RHAMNOSUS GG 1 CAPSULE. PO SCH ×2 (08:24→20:18)
[2018-02-08] MEDS: FUROSEMIDE 40 MG/4 ML VIAL IVP SCH (08:25)
[2018-02-08] MEDS: TIMOLOL 0.5% OPHTH SOLUTION 5ML BOTTLE. OU SCH (08:25)
[2018-02-08] MEDS: MENTHOL/CAMPHOR 0.5%/0.5% LOTION 222ML BOTTLE. TP SCH ×2 (08:59→20:20)
[2018-02-08 11:03] VITALS: BP 117/63
--- NOTE | 2018-02-08 11:33 | NUR ---
IP: Unable to complete MRSA education because of mental status.
[2018-02-08] MEDS: HYDROCORTISONE 2.5% RECTAL CREAM 30GM TUBE. RC PRN (15:07)
[2018-02-08 15:27] VITALS: BP 109/53
--- NOTE | 2018-02-08 17:39 | NUR ---
Pt transferred to room 125. Pt oriented to self. In bed eating dinner assisted by JEREMIAH. This RN agrees with CHRIS [employer] associate. Will continue to monitor.
--- NOTE | 2018-02-08 18:52 | PDOC ---
Exam Note: Dio Note: Please also refer to the separate dictated note~for this date of service dictated separately.~Patient seen individually. Discussed the patient with Nursing staff reviewed the chart.~Reviewed interim history and current functioning. Reviewed vital signs,~Labs/ Radiology~and current medications noted below. Continue current treatment with the changes noted in the dictated addendum note Assessment: Vital Signs: Vital Signs Date Time Temp Pulse Resp B/P (MAP) Pulse Ox O2 Delivery O2 Flow Rate FiO2 02/08/18 15:27 70 20 109/53 (71) 93 Nasal Cannula 2.0 02/08/18 11:03 97.6 I&O Intake and Output 02/08/18 07:00 Intake Total 1290 ml Output Total 2050 ml Balance -760 ml Intake Oral 690 ml IV Total 600 ml Output Urine Total 2050 ml Labs: Laboratory Tests Test 02/07/18 20:40 02/08/18 05:45 02/08/18 07:27 02/08/18 11:39 Glucose (Fingerstick) 230 mg/dL (70-99) H 160 mg/dL (70-99) H 255 mg/dL (70-99) H White Blood Count 7.1 x10^3/uL (4.0-11.0) Red Blood Count 3.01 x10^6/uL (4.30-5.70) L Hemoglobin 9.2 g/dL (13.0-17.5) L Hematocrit 28.4 % (39.0-53.0) L Mean Corpuscular Volume 94 fL (79-100) Mean Corpuscular Hemoglobin 31 pg (25-35) Mean Corpuscular Hemoglobin Concent 32 g/dL (31-37) Red Cell Distribution Width 18.5 % (11.5-14.5) H Platelet Count 409 x10^3/uL (140-400) H Sodium Level 147 mmol/L (136-145) H Potassium Level 4.1 mmol/L (3.5-5.1) Chloride Level 106 mmol/L (98-107) Carbon Dioxide Level 37 mmol/L (21-32) H Anion Gap 4 (6-14) L Blood Urea Nitrogen 25 mg/dL (8-26) Creatinine 1.2 mg/dL (0.7-1.3) Estimated GFR (Cockcroft-Gault) 57.4 BUN/Creatinine Ratio 21 (6-20) H Glucose Level 186 mg/dL (70-99) H Calcium Level 9.0 mg/dL (8.5-10.1) Total Bilirubin 0.3 mg/dL (0.2-1.0) Aspartate Amino Transferase (AST) 22 U/L (15-37) Alanine Aminotransferase (ALT) 35 U/L (16-63) Alkaline Phosphatase 77 U/L (46-116) Total Protein 7.2 g/dL (6.4-8.2) Albumin 2.8 g/dL (3.4-5.0) L Albumin/Globulin Ratio 0.6 (1.0-1.7) L Test 02/08/18 16:00 Glucose (Fingerstick) 252 mg/dL (70-99) H Current Medications: Meds: Current Medications Lorazepam (Ativan) 2 mg STK-MED ONCE .ROUTE ; Start 02/05/18 at 04:03; Stop at 04:04; Status DC Lorazepam (Ativan) 1 mg 1X ONCE IV Last administered on 02/05/18at 04:12; Start 02/05/18 at 04:15; Stop 02/05/18 at 04:24; Status DC Sodium Chloride 1,000 ml @ 125 mls/hr Q8H IV ; Start 02/05/18 at 04:05; Stop 02/06/18 at 10:39; Status DC Bumetanide (Bumex) 1 mg ONCE ONCE IVP Last administered on 02/05/18at 05:45; Start 02/05/18 at 05:00; Stop 02/05/18 at 05:01; Status DC Lorazepam (Ativan) 1 mg 1X ONCE IV Last administered on 02/05/18at 04:30; Start 02/05/18 at 04:30; Stop 02/05/18 at 04:35; Status DC Sodium Chloride 1,000 ml @ 1,000 mls/hr Q1H IV ; Start 02/05/18 at 05:00; Stop 02/05/18 at 05:59; Status DC Cefepime HCl 1 gm/ Sodium Chloride 50 ml @ 100 mls/hr Q24H IV Last administered on 02/08/18at 05:53; Start 02/05/18 at 05:00; Stop 02/08/18 at 14:03; Status DC Vancomycin HCl (Vanco Per Pharmacy) 1 each PRN DAILY PRN MC SEE COMMENTS Last administered on 02/07/18at 09:06; Start 02/05/18 at 04:45; Stop 02/07/18 at 13:12; Status DC Calcium Gluconate 1,000 mg 1X ONCE IV Last administered on 02/05/18at 05:48; Start 02/05/18 at 05:00; Stop 02/05/18 at 05:01; Status DC Albuterol/ Ipratropium (Duoneb) 3 ml 1X ONCE NEB Last administered on at 05:57; Start 02/05/18 at 05:00; Stop 02/05/18 at 05:01; Status DC Sodium Bicarbonate 50 meq/Dextrose 1,050 ml @ 125 mls/hr 1X ONCE IV ; Start at 05:00; Stop 02/05/18 at 13:23; Status DC Insulin Human Regular (NovoLIN R) 10 unit 1X ONCE IV Last administered on at 05:54; Start 02/05/18 at 05:00; Stop 02/05/18 at 05:01; Status DC Dextrose 25 gm 1X ONCE IV Last administered on 02/05/18at 05:50; Start 02/05/18 at 05:00; Stop 02/05/18 at 05:01; Status DC Vancomycin HCl 2 gm/Sodium Chloride 500 ml @ 250 mls/hr 1X ONCE IV ; Start 02/05/18 at 05:30; Stop 02/05/18 at 07:29; Status DC Sodium Bicarbonate (Sodium Bicarb Adult 8.4% Syr) 50 meq STK-MED ONCE .ROUTE ; Start 02/05/18 at 05:40; Stop 02/05/18 at 05:41; Status DC Ondansetron HCl (Zofran) 4 mg PRN Q4HRS PRN IV NAUSEA/VOMITING; Start 02/05/18 at 06:00; Stop 02/06/18 at 06:00; Status DC Lorazepam (Ativan) 1 mg PRN Q2HR PRN IV ANXIETY Last administered on 02/07/18at 04:17; Start 02/05/18 at 06:00; Stop 02/07/18 at 08:06; Status DC Sodium Bicarbonate (Sodium Bicarb Adult 8.4% Syr) 50 meq 1X ONCE IV Last administered on 02/05/18at 06:12; Start 02/05/18 at 06:30; Stop 02/05/18 at 06:31; Status DC Sodium Chloride 50 ml @ As Directed STK-MED ONCE .ROUTE ; Start 02/05/18 at 06:17 ; Stop 02/05/18 at 06:18; Status DC Cefepime HCl (Maxipime) 1 gm STK-MED ONCE .ROUTE ; Start 02/05/18 at 06:18; Stop 02/05/18 at 06:19; Status DC Vancomycin HCl 1.5 gm/Sodium Chloride 500 ml @ 250 mls/hr Q24H IV Last administered on 02/07/18at 08:32; Start 02/06/18 at 08:00; Stop 02/07/18 at 13:01; Status DC Vancomycin HCl (Vancomycin Trough Level) 1 each 1X ONCE MC Last administered on 02/07/18at 07:30; Start 02/07/18 at 07:30; Stop 02/07/18 at 07:32; Status DC Lactobacillus Rhamnosus (Culturelle) 1 cap BID PO Last administered on at 08:24; Start 02/05/18 at 09:00 Vancomycin HCl 2 gm/Sodium Chloride 500 ml @ 250 mls/hr 1X ONCE IV Last administered on 02/05/18at 08:23; Start 02/05/18 at 08:15; Stop 02/05/18 at 10:14; Status DC Acetaminophen (Tylenol) 650 mg PRN Q6HRS PRN PO PAIN; Start 02/05/18 at 12:15 Cyanocobalamin (Vitamin B-12) 1,000 mcg DAILY PO Last administered on 02/08/18at 08:22; Start 02/06/18 at 09:00 Famotidine (Pepcid) 20 mg DAILY PO ; Start 02/06/18 at 09:00; Stop 02/06/18 at 09: 00; Status DC Hydroxyzine HCl (Atarax) 20 mg PRN Q8HRS PRN PO ITCHING; Start 02/05/18 at 12:30 ; Stop 02/05/18 at 16:34; Status DC Albuterol/ Ipratropium (Duoneb) 3 ml PRN Q4HRS PRN NEB SHORTNESS OF BREATH; Start 02/05/18 at 12:15 Latanoprost (Xalatan) 1 drop QHS OU Last administered on 02/05/18at 20:48; Start 02/05/18 at 21:00 Loperamide HCl (Imodium) 2 mg PRN Q4HRS PRN PO DIARRHEA; Start 02/05/18 at 12:15 ; Stop 02/05/18 at 16:34; Status DC Magnesium Oxide (Magnesium Oxide) 400 mg BID PO Last administered on 02/08/18 08:23; Start 02/05/18 at 21:00 Quetiapine Fumarate (SEROquel) 25 mg HS PO Last administered on 02/07/18 20:23 ; Start 02/05/18 at 21:00 Sertraline HCl (Zoloft) 50 mg DAILY PO Last administered on 02/08/18 08:22; Start 02/06/18 at 09:00 Tamsulosin HCl (Flomax) 0.4 mg HS PO Last administered on 02/07/18 20:22; Start 02/05/18 at 21:00 Vitamin D (Vitamin D3) 2,000 unit DAILY PO Last administered on 02/08/18 08:21 ; Start 02/06/18 at 09:00 Hydrocortisone (Proctosol-Hc) 1 genaro PRN BID PRN RC INFLAMMATION Last administered on 02/08/18 15:07; Start 02/05/18 at 12:30 Cetirizine HCl (ZyrTEC) 10 mg DAILY PO ; Start 02/06/18 at 09:00; Stop 02/06/18 at 09:00; Status DC Magnesium Hydroxide (Milk Of Magnesia) 2,400 mg PRN QHS PRN PO CONSTIPATION; Start 02/05/18 at 12:30 Timolol Maleate (Timoptic 0.5% Oph) 1 drop DAILYWBKFT OU Last administered on 02/08/18 08:25; Start 02/06/18 at 08:00 Sodium Polystyrene Sulfonate (Kayexalate) 30 gm 1X ONCE PO Last administered on 02/05/18at 14:29; Start 02/05/18 at 13:45; Stop 02/05/18 at 13:46; Status DC Lactulose (Lactulose) 20 gm 1X ONCE PO Last administered on 02/05/18 14:28; Start 02/05/18 at 13:45; Stop 02/05/18 at 13:46; Status DC Nitroglycerin (Nitrostat) 0.4 mg STK-MED ONCE SL ; Start 02/05/18 at 14:13; Stop 02/05/18 at 14:14; Status DC Nitroglycerin (Nitrostat) 0.4 mg PRN Q5MIN PRN SL CHEST PAIN Last administered on 02/05/18at 14:27; Start 02/05/18 at 14:15 Allopurinol (Zyloprim) 300 mg DAILY PO Last administered on 02/08/18 08:23; Start 02/06/18 at 09:00 Apixaban (Eliquis) 5 mg BID PO Last administered on 02/08/18 08:23; Start at 21:00 Atorvastatin Calcium (Lipitor) 10 mg QHS PO Last administered on 02/07/18 20:22 ; Start 02/05/18 at 21:00 Buspirone HCl (Buspar) 10 mg BID PO Last administered on 02/08/18 08:21; Start 02/05/18 at 21:00 Diphenhydramine HCl (Benadryl) 25 mg PRN Q4HRS PRN PO ITCHING Last administered on 02/07/18 01:57; Start 02/05/18 at 14:30 Finasteride (Proscar) 5 mg DAILY PO Last administered on 02/08/18 08:21; Start 02/06/18 at 09:00 Furosemide (Lasix) 40 mg BID94 PO Last administered on 02/06/18 08:06; Start at 16:00; Stop 02/06/18 at 11:18; Status DC Insulin Detemir (Levemir) 6 units HS SQ Last administered on 02/07/18 21:20; Start 02/05/18 at 21:00 Camphor/Menthol/ Phenol (Sarna) 1 genaro BID TP Last administered on 02/07/18 20: 29; Start 02/05/18 at 21:00 Prednisone (Prednisone) 10 mg DAILY PO Last administered on 02/08/18 08:22; Start 02/06/18 at 09:00 Tramadol HCl (Ultram) 50 mg PRN Q4HRS PRN PO PAIN Last administered on at 18:41; Start 02/05/18 at 14:30 Fluvoxamine Maleate (Luvox) 100 mg QHS PO Last administered on 02/07/18at 20:23; Start 02/05/18 at 21:00 Nifedipine (Procardia Xl) 60 mg DAILY PO Last administered on 02/08/18 08:21; Start 02/06/18 at 09:00 Potassium Chloride (Klor-Con) 40 meq 1X ONCE PO ; Start 02/06/18 at 07:15; Stop 02/06/18 at 07:21; Status DC Potassium Chloride (Klor-Con) 40 meq Q2H PO Last administered on 02/06/18at 11:40 ; Start 02/06/18 at 07:15; Stop 02/06/18 at 09:16; Status DC Furosemide (Lasix) 40 mg DAILY IVP Last administered on 02/08/18at 08:25; Start 02/06/18 at 12:00; Stop 02/08/18 at 17:04; Status DC Potassium Chloride (Klor-Con) 40 meq 1X ONCE PO Last administered on 02/06/18at 14:23; Start 02/06/18 at 14:00; Stop 02/06/18 at 14:01; Status DC Lorazepam (Ativan) 1 mg PRN Q4HRS PRN IV ANXIETY Last administered on 02/08/18at 12:06; Start 02/07/18 at 08:15; Stop 02/08/18 at 14:03; Status DC Vancomycin HCl (Vancomycin Trough Level) 1 each 1X ONCE MC ; Start 02/10/18 at 07:30; Stop 02/10/18 at 07:31; Status Cancel Hydrocortisone Sodium Succinate (Solu-CORTEF) 100 mg Q8HRS IV Last administered on 02/08/18at 15:07; Start 02/07/18 at 14:00; Stop 02/08/18 at 17:04; Status DC Cetirizine HCl (ZyrTEC) 10 mg DAILY PO ; Start 02/09/18 at 09:00 Furosemide (Lasix) 40 mg BID92 PO ; Start 02/09/18 at 09:00 Active Scripts Active Reported Fluvoxamine Maleate 100 Mg Tablet 1 Tab PO QHS Procardia Xl (Nifedipine) 60 Mg Tab.er.24 1 Tab PO DAILY K-Tab ER (Potassium Chloride) 20 Meq Tablet.er 40 Meq PO DAILY Prednisone 10 Mg Tablet 10 Mg PO DAILY Benadryl (Diphenhydramine Hcl) 25 Mg Capsule 1 Cap PO PRN Q4HRS PRN Eliquis (Apixaban) 5 Mg Tablet 5 Mg PO BID Spironolactone 25 Mg Tablet 1 Tab PO DAILY Novolog (Insulin Aspart) 100 Unit/1 Ml Cartridge 6 Unit SQ TIDAC Levemir Flextouch (Insulin Detemir) 100 Unit/1 Ml Insuln.pen 6 Unit SQ HS Tramadol Hcl (Tramadol HCl) 50 Mg Tablet 50 Mg PO Q4HRS PRN Allopurinol 300 Mg Tablet 1 Tab PO DAILY Buspirone Hcl 10 Mg Tablet 1 Tab PO BID Lipitor (Atorvastatin Calcium) 10 Mg Tablet 1 Tab PO QHS Sarna Anti-Itch Lotion (Menthol/Camphor) 222 Ml Lotion 222 Ml TP BID Furosemide 40 Mg Tablet 40 Mg PO BID Finasteride 5 Mg Tablet 1 Tab PO DAILY Duoneb 0.5-3(2.5) Mg/3 Ml (Albuterol/Ipratropium) 3 Ml Ampul.neb 3 Ml NEB Q4HRS PRN Analpram Hc 2.5% Cream (Hydrocortisone/Pramoxine) 30 Gm Cream.appl 1 Genaro RC BID PRN Milk Of Magnesia (Magnesium Hydroxide) 2,400 Mg/10 Ml Oral.susp 2,400 Mg PO PRN QHS PRN Timoptic 0.5% Ocudose Drop (Timolol Maleate/Pf) 1 Each Droperette 1 Drop OU DAILYWBKFT Seroquel (Quetiapine Fumarate) 25 Mg Tablet 25 Mg PO HS Tylenol (Acetaminophen) 325 Mg Tablet 650 Mg PO Q6HRS PRN Magnesium Oxide 400 Mg Tablet 400 Mg PO BID Latanoprost 2.5 Ml Drops 1 Drop EACHEYE QHS Vitamin B-12 (Cyanocobalamin (Vitamin B-12)) 1,000 Mcg Tablet 1,000 Mcg PO DAILY Vitamin D-3 (Cholecalciferol (Vitamin D3)) 2,000 Unit Capsule 2,000 Unit PO DAILY Tamsulosin Hcl 0.4 Mg Cap.er.24h 0.4 Mg PO HS I have reviewed the current psychotropics carefully including drug interactions. Risk benefit ratio favors no change other than as noted in my dictated progress note. 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
[2018-02-08 19:41] VITALS: BP 127/71
[2018-02-08] MEDS: TAMSULOSIN 0.4 MG CAP.ER.24H. PO SCH (20:18)
[2018-02-08] MEDS: QUEtiapine 25 MG TABLET. PO SCH (20:18)
[2018-02-08] MEDS: ATORVASTATIN CALCIUM 10 MG TABLET. PO SCH (20:18)
[2018-02-08] MEDS: diphenhydrAMINE HCL 25 MG CAPSULE PO PRN (20:18)
[2018-02-08] MEDS: LATANOPROST 0.005% OPHTH SOLUTION 2.5ML BOTTLE. OU SCH (20:27)
[2018-02-08] MEDS: INSULIN DETEMIR 300 UNITS/3 ML INSULN.PEN. SQ SCH (20:29)
--- NOTE | 2018-02-08 22:25 | PN ---
DATE: 02/08/2018 SUBJECTIVE: The patient is resting slightly propped up in bed, in no apparent distress. He is awake, alert, but very restless, agitated, confused. PHYSICAL EXAMINATION: GENERAL: When I examined him, he looked pale, markedly cushingoid, but no jaundice, cyanosis, or thyromegaly. No jugular venous distention. No limb edema. VITAL SIGNS: His heart rate was 76, blood pressure 117/63, temperature was 97.6, respiratory rate was 24, and oxygen saturation was 93% on room air. HEAD, EYES, EARS, NOSE AND THROAT: Showed normocephalic, atraumatic. NECK: Supple. HEART: Showed normal first and second sounds. No gallop, rub or murmur. CHEST: Clear to auscultation. No crepitation or rhonchi. ABDOMEN: Distended, soft, nontender. NEUROLOGIC: He is awake, alert, markedly confused, agitated, yelling constantly. All his cranial nerves are intact. He moves extremities without difficulty, although he is mostly bedbound, chair bound. His intake was 1300, output was 3050. LABORATORY DATA: His white cell count was 7100, hemoglobin 9, hematocrit 28, MCV 94, and platelet count of 409,000. His chemistry showed serum sodium 147, potassium 4.1, chloride 106, bicarbonate 37, anion gap of 4, BUN 25, creatinine 1.2, estimated GFR was 57 mL per minute. His glucose was 186, calcium was 9. Total bilirubin, AST, ALT, alkaline phosphatase were normal. His total protein was 7.2, albumin was 2.8. His blood culture is so far negative. ASSESSMENT: 1. [place] diastolic congestive heart failure, much improved. 2. Acute kidney injury is improving. His BUN is down from 44-25 and creatinine down from 2-1.2. 3. Atrial fibrillation, rate controlled, well anticoagulated on apixaban. 4. Sick sinus syndrome for which he has had a permanent pacemaker and that was checked yesterday and found to be functioning well without any problem. 5. Pulmonary hypertension. 6. Moderate aortic stenosis. 7. Hypertension. 8. Hyperkalemia, resolved. His most recent serum potassium is 4.1. 9. Obstructive sleep apnea for which he probably needs an outpatient sleep study. PLAN: The plan is to discontinue IV antibiotic, continue with hydrocortisone, and we will consult Dr. Chua, who will evaluate him for the extreme agitation and restlessness. I would discontinue Ativan and add Zyrtec for ____. NEAL ESTEVEZ MD DR: ALFREDO/alejo JOB#: [id number] / [id number]
[2018-02-08 22:58] VITALS: BP 94/57
[2018-02-09 05:37] VITALS: BP 135/73
[2018-02-09 06:39] LABS: CALCIUM 8.9 mg/dL (8.5-10.1); CREATININE 1.3 mg/dL (0.7-1.3); GFR 52.3; POTASSIUM 3.3 mmol/L (3.5-5.1)
[2018-02-09] MEDS: TIMOLOL 0.5% OPHTH SOLUTION 5ML BOTTLE. OU SCH (08:25)
[2018-02-09] MEDS ORDERED: FUROSEMIDE 40 MG TABLET PO SCH (09:00)
[2018-02-09] MEDS ORDERED: CETIRIZINE HCL 10 MG TABLET PO SCH (09:00)
--- NOTE | 2018-02-09 10:04 | RAD ---
CT head without intravenous contrast History: Confusion. Comparison: None. Technique: Axial images are obtained of the head from the skull base through the vertex without IV contrast. Exposure: One or more of the following individualized dose reduction techniques were utilized for this examination: 1. Automated exposure control 2. Adjustment of the mA and/or kV according to patient size 3. Use of iterative reconstruction technique Findings: Motion artifact is present at several levels, which could obscure subtle abnormalities. The ventricles are appropriate in size, shape, and location for the patient's age. No obvious intracranial mass, mass-effect, midline shift, hemorrhage or obvious acute infarction is identified. Basilar cisterns are patent. Bone windows demonstrate no acute calvarial abnormality. The visualized paranasal sinuses appear clear. Impression: Limited by motion. No acute intracranial process. Please note that CT can be relatively insensitive to acute ischemic infarction for up to 24 hours after symptom onset. Electronically signed by: Huber Juan MD (02/09/2018 10:00 AM) [id number]
[2018-02-09] MEDS: busPIRone 10 MG TABLET. PO SCH (10:32)
[2018-02-09] MEDS: LACTOBACILLUS RHAMNOSUS GG 1 CAPSULE. PO SCH (10:32)
[2018-02-09] MEDS: APIXABAN 5 MG TABLET. PO SCH (10:33)
[2018-02-09] MEDS: CYANOCOBALAMIN (VITAMIN B-12) 1,000 MCG TABLET. PO SCH (10:34)
[2018-02-09] MEDS: CHOLECALCIFEROL (VITAMIN D3) 1,000 UNIT TABLET PO SCH (10:34)
[2018-02-09] MEDS: SERTRALINE 50 MG TABLET. PO SCH (10:35)
[2018-02-09] MEDS: FINASTERIDE 5 MG TABLET PO SCH (10:35)
[2018-02-09] MEDS: predniSONE 10 MG TABLET PO SCH (10:35)
[2018-02-09] MEDS: ALLOPURINOL 300 MG TABLET. PO SCH (10:35)
[2018-02-09] MEDS: HYDROCORTISONE 2.5% RECTAL CREAM 30GM TUBE. RC PRN ×2 (10:44→10:45)
[2018-02-09] MEDS: MAGNESIUM OXIDE 400 MG TABLET PO SCH (10:44)
[2018-02-09 11:00] VITALS: BP 118/70
--- NOTE | 2018-02-09 14:16 | DS ---
DATE OF DISCHARGE: 02/05/2018 HOSPITAL COURSE: The patient is an 87-year-old male patient who was admitted on 02/05/2018 with increasing shortness of breath, hypoxia and further evaluation showed that he has acute on chronic congestive heart failure. His echocardiogram showed that his left ventricular systolic function is normal, ejection fraction estimated at 60-65% with normal left ventricular segmental wall motion. He has pacemaker in the right atrium consistent with history. He has moderate to severe valvular aortic stenosis, mean gradient of 39 mmHg. Also moderate tricuspid regurgitation and moderate to severe pulmonary hypertension with the pulmonary artery pressure estimated at 72 mmHg. The patient was treated with aggressive diuresis. He was also on BiPAP and he did actually very well. His oxygen requirement was cut down to 2 liters; however, the patient continued to be extremely confused, agitated, restless and apparently his DPOA requested to be discharged back to [facility] with hospice care. PHYSICAL EXAMINATION: GENERAL: When I saw him today, he was somewhat pale, but no jaundice, cyanosis, lymphadenopathy or thyromegaly. No jugular venous distension. No lower limb edema. VITAL SIGNS: His heart rate was 70, blood pressure 135/73, temperature was 98.2, respiratory rate 16, and oxygen saturation was 98% on 2 liters of oxygen by nasal cannula. HEAD, EYES, EARS, NOSE AND THROAT: Showed normocephalic, atraumatic. NECK: Supple. HEART: Showed normal first and second heart sounds with no gallop, rub or murmur. CHEST: Clear to auscultation. No crepitation or rhonchi. ABDOMEN: Distended, soft, nontender. No guarding or rigidity. No organomegaly. Hernial orifice intact. Bowel sounds normal. NEUROLOGIC: He was awake, alert, but very confused, agitated. All his cranial nerves are intact. He moves extremities without difficulty, although he is mostly bedbound, chair bound. His intake over the last 24 hours was 850, output was 650. LABORATORY DATA: As of yesterday showed a white cell count 7000, hemoglobin 9, hematocrit 28, MCV 94 and platelet count of 109,000. His chemistry showed a serum sodium of 147, potassium 3.3, chloride 105, bicarbonate 37, anion gap of 5, BUN 32, creatinine 1.3, estimated GFR was 52 mL per minute. His glucose was 115 and calcium was 8.9. DISCHARGE MEDICATIONS: The patient was discharged back to [facility] to continue to consult hospice to evaluate and treat. He was discharged on the following medications: Tylenol 650 mg every 6 hours, allopurinol 300 mg once a day, apixaban 5 mg twice a day, atorvastatin calcium 10 mg at bedtime, buspirone 10 mg b.i.d., cholecalciferol with vitamin D3 2000 international units daily, cyanocobalamin 1000 mcg p.o. daily, diphenhydramine 25 mg every 4 hours, finasteride 5 mg daily, fluvoxamine maleate 100 mg at bedtime, furosemide 40 mg twice a day, hydrocortisone pramoxine applied topically as needed. He is on insulin. He is on NovoLog insulin 6 units before meals and insulin detemir 6 units at bedtime, ipratropium bromide, albuterol inhaler, albuterol sulfate by nebulizer every 4 hours, latanoprost 1 drop to both eyes at bedtime for glaucoma, magnesium hydroxide for milk of magnesia 30 mL p.o. daily p.r.n. for constipation, magnesium oxide 400 mg twice a day, nifedipine for Procardia 60 mg daily, potassium chloride 30 mEq daily, prednisone 10 mg once a day, tamsulosin 0.4 mg daily, timolol maleate 1 drop to both eyes daily, tramadol 50 mg p.o. q.4h p.r.n. for pain. FINAL DISCHARGE DIAGNOSES: 1. Acute on chronic diastolic congestive heart failure. 2. Atrial fibrillation, rate controlled, on Eliquis. 3. Hyperkalemia, hypokalemia, resolved. 4. Hypertension, well controlled. 4. Hyperlipidemia. The patient has a permanent pacemaker. The patient to be discharged to [facility] to consult hospice for evaluation and treatment. NEAL ESTEVEZ MD DR: ALFREDO/alejo JOB#: [id number] / [id number]
--- NOTE | 2018-02-09 14:45 | NUR ---
NRSG NOTE -- DISCHARGE PT TRANSPORTED TO [facility] VIA TRANSPORT PERSONNEL AT 1445. PT LEFT WITH [facility]. TRANSFER PAPERWORK GIVEN TO TRANSPORT PERSONNEL. REPORT CALLED TO CHRIS ANDRADE AT [facility]. PT TO BE EVALUATED BY [facility].
== END 2018-02-09 14:45 | disposition hospice, home (50) | DRG 871 ==
LOC: ER 03:59 → ICU 07:52 → 1 SOUTH 02-08 17:12
PROVIDERS: ADMIT Internal Medicine; ATTEND Internal Medicine
PROC: 5A09357 Assistance with Respiratory Ventilation, Less than 24 Consecutive Hours, Continuous Positive Airway Pressure (ICD-10-PCS; principal; 2018-02-05)
DX: A41.9 Sepsis, unspecified organism (principal); I50.33 Acute on chronic diastolic (congestive) heart failure; N17.9 Acute kidney failure, unspecified; J96.01 Acute respiratory failure with hypoxia; J96.02 Acute respiratory failure with hypercapnia; E11.22 Type 2 diabetes mellitus with diabetic chronic kidney disease; E87.5 Hyperkalemia; I49.5 Sick sinus syndrome; G30.9 Alzheimer's disease, unspecified; F05 Delirium due to known physiological condition; I13.0 Hypertensive heart and chronic kidney disease with heart failure and stage 1 through stage 4 chronic kidney disease, or unspecified chronic kidney disease; I07.1 Rheumatic tricuspid insufficiency; N18.9 Chronic kidney disease, unspecified; M10.9 Gout, unspecified; I27.20 Pulmonary hypertension, unspecified; E78.00 Pure hypercholesterolemia, unspecified; E78.5 Hyperlipidemia, unspecified; E87.6 Hypokalemia; F02.80 Dementia in other diseases classified elsewhere, unspecified severity, without behavioral disturbance, psychotic disturbance, mood disturbance, and anxiety; F41.9 Anxiety disorder, unspecified; H40.9 Unspecified glaucoma; F10.21 Alcohol dependence, in remission; I35.0 Nonrheumatic aortic (valve) stenosis; I70.0 Atherosclerosis of aorta; R21 Rash and other nonspecific skin eruption; I48.2 Chronic atrial fibrillation; N40.0 Benign prostatic hyperplasia without lower urinary tract symptoms; G47.33 Obstructive sleep apnea (adult) (pediatric); M19.90 Unspecified osteoarthritis, unspecified site; M54.30 Sciatica, unspecified side; Z51.5 Encounter for palliative care; Z66 Do not resuscitate; Z79.01 Long term (current) use of anticoagulants; Z95.0 Presence of cardiac pacemaker; Z79.4 Long term (current) use of insulin; Z79.52 Long term (current) use of systemic steroids; Z88.6 Allergy status to analgesic agent; Z88.0 Allergy status to penicillin; Z91.018 Allergy to other foods; Z79.899 Other long term (current) drug therapy; Z74.01 Bed confinement status
CPT/HCPCS: 36415; 51702; 70450; 71045; 80048; 80053; 80061; 80202; 81001; 82803; 82947; 83605; 83880; 84443; 84484; 85025; 85027; 85610; 87040; 87641; 93005; 93306; 94640; 96374; 96375; 99292; J0610; J0692; J1815; J1940; J2060; J3370; J3490; J7040; J7512; J7620; Q0163; 97530; 99291-25; J7030